=== PATIENT | female | born 1960 | race Caucasian/White ===

== ENCOUNTER 2017-06-20 13:48 | Inpatient (IN) | payer OTHER ==
[~2017-06-20] VITALS: Ht 167.6 cm; Wt 101.0 kg
--- NOTE | 2017-06-20 14:01 | ED GENERAL ADULT ---
History of Present Illness General Chief Complaint: General Adult Stated Complaint: BIBA MULTI COMPLAINTS Source: patient Exam Limitations: no limitations Vital Signs & Intake/Output Vital Signs & Intake/Output Vital Signs Date Time Temp Pulse Resp B/P B/P Pulse O2 O2 Flow FiO2 Mean Ox Delivery Rate 06/209 99.1 73 22 126/70 95 06/20 1906 98.4 76 18 120/64 96 Room Air 06/20 1753 97.8 82 17 137/68 98 Room Air 06/20 1631 87 18 122/63 99 Room Air 06/20 1416 98 Room Air 06/20 1402 97.9 92 18 122/79 96 Room Air Room Air Allergies Coded Allergies: ciprofloxacin (Severe, ANAPHYLAXIS 06/20/17) Reconcile Medications Amlodipine Besylate 10 MG TABLET 1 TAB PO DAILY htn (Reported) Metformin HCl (Metformin HCl ER) 500 MG TAB.ER.24H 2 TAB PO BID DM (Reported) Valsartan/Hydrochlorothiazide (Valsartan-Hctz 320-25 MG Tab) 320 MG-25 MG TABLET 1 TAB PO DAILY HTN (Reported) Triage Nurses Notes Reviewed? yes Onset: Abrupt Duration: hour(s): Timing: recent history HPI: 06/20/17 3:37 PM 56-year-old female presents to the emergency department complaining of left- sided weakness. The patient states she had a headache last night and was not feeling right. This morning when she woke up at approximately 6:30 she was dribbling her coffee. She was last seen normal yesterday. The onset of the symptoms were abrupt, the duration has been approximately 12 hours, the severity is significant as her symptoms required her to come to the emergency department for care. She has a past medical history of hypertension Past History Medical History Any Pertinent Medical History? see below for history Cardiovascular: hypertension Surgical History Surgical History: non-contributory Family History Hx Contributory? No Review of Systems Review of Systems Constitutional: Denies: fever. EENTM: Denies: visual changes. Respiratory: Denies: short of breath. Cardiovascular: Denies: chest pain. GI: Denies: abdominal pain. Genitourinary: Reports: no symptoms. Musculoskeletal: Reports: no symptoms. Skin: Reports: no symptoms. Neurological/Psychological: Reports: anxiety, weakness. Hematologic/Endocrine: Reports: no symptoms. Immunologic/Allergic: Reports: no symptoms. Physical Exam Physical Exam General Appearance: well developed/nourished, alert, awake, anxious, mild distress Head: atraumatic, normal appearance Eyes: Bilateral: normal appearance, PERRL, EOMI. Ears, Nose, Throat: normal pharynx, normal ENT inspection Neck: normal inspection, supple Respiratory: normal breath sounds, chest non-tender, no respiratory distress Cardiovascular: regular rate/rhythm Peripheral Pulses: 4+ radial (R), 4+ radial (L) Gastrointestinal: soft, non-tender Back: normal range of motion Extremities: pedal edema Neurologic/Psych: awake, alert, oriented x 3 Core Measures ACS in differential dx? No CVA/TIA Diagnosis: Yes NIH Stroke Scale (24 Hours) NIH Stroke Scale (24 Hours) Response Value Level of Consciousness alert 0 LOC Questions answers both correctly 0 LOC Commands obeys both correctly 0 Best Gaze normal 0 Visual [place] no visual loss 0 Motor Arm - Left drift 1 Motor Arm - Right no drift 0 Motor Leg - Left drift 1 Motor Leg - Right no drift 0 Limb Ataxia no ataxia 0 Sensory normal 0 Best Language no aphasia 0 Dysarthria normal articulation 0 Extinction and Inattention no neglect 0 Total 2 Date Last Known Well: 06/19/17 Time Last Known Well: 1800 Symptom start date: 06/19/17 Symptom start time: 1800 Reason tPA not ordered Medical Contraindication Swallow Evaluation Fail Swallow eval date 06/20/17 Swallow eval time 1900 Sepsis Present: No Sepsis Focused Exam Completed? No Progress Differential Diagnoses I considered the following diagnoses in my evaluation of the patient: [cva, tia, ] Plan of Care: Orders Procedure Date/time Status Consistent Carbohydrate 2 06/21 B Active PT Evaluate & Treat 06/21 0800 Active Occupational Tx Eval & Treat 06/21 0800 Active CBC WITHOUT DIFFERENTIAL 06/21 0600 Active BASIC ELECTROLYTES PLUS BUN&CR 06/21 0600 Active ECHOCARDIOGRAM 06/20 1830 Active URINE DRUGS OF ABUSE 06/20 1736 Active Pathway - chart 06/20 1705 Active House Staff 06/20 1705 Active Patient Data 06/20 1705 Active Patient Data 06/20 1700 Active Add-on Test (ER Only) 06/20 1700 Active ED Holding Orders 06/20 1658 Active Admit to inpatient 06/20 1658 Active Vital Signs 06/20 1658 Active Code Status 06/20 1658 Active Intake & Output 06/20 1411 Active LIPID PANEL 06/20 1408 Active GLYCOSYLATED HGB 06/20 1408 Active TROPONIN LEVEL 06/20 1358 Active MAGNESIUM 06/20 1358 Active COMPREHENSIVE METABOLIC PANEL 06/20 1358 Active CBC WITHOUT DIFFERENTIAL 06/20 1358 Complete EKG 06/20 1358 Active LP-NABVULG-EKJJIVLRA DOPPLER 06/20 UNK Active SWALLOW EVALUATION 06/20 UNK Active VTE Mechanical Prophylaxis 06/20 UNK Active Telemetry/Ticket Puller 06/20 UNK Active Seizure Precautions 06/20 UNK Active Precautions 06/20 UNK Active NIH Stroke Scale 06/20 UNK Active FingerStick- Glucose 06/20 UNK Active CMS- Neurovascular Checks 06/20 UNK Active CIWA 06/20 UNK Active Current Medications Sig/Gina Start time Last Medication Dose Stop Time Status Admin Aspirin 81 MG DAILY 06/21 0900 AC (Aspirin) Insulin Aspart 0 TIDAC 06/21 0800 AC (NovoLOG) Heparin Sodium 5,000 UNIT Q8 06/20 2200 AC (Porcine) Insulin Aspart 0 AT BEDTIME 06/20 2100 AC (NovoLOG) Atorvastatin Calcium 80 MG 1700 06/20 1815 AC (Lipitor) Laboratory Tests 06/20/17 1408: Anion Gap 18 H, Estimated GFR 51 L, BUN/Creatinine Ratio 26.4 H, Glucose 135 H, Hemoglobin A1c Pending, Calcium 9.9, Magnesium 1.6, Total Bilirubin 1.1, AST 19, ALT 30, Alkaline Phosphatase 58, Troponin I 0.03, Total Protein 7.6, Albumin 4.3, Globulin 3.3, Albumin/Globulin Ratio 1.3, Triglycerides 132, Cholesterol 152, LDL Cholesterol, Calc 67, HDL Cholesterol 55, Cholesterol/HDL Ratio 3, CBC w Diff NO MAN DIFF REQ, RBC 5.03, MCV 87.5, MCH 29.5, MCHC 33.8, RDW 13.5, MPV 8.8, Gran % 76.3 H, Lymphocytes % 16.8 L, Monocytes % 5.3, Eosinophils % 1.3, Basophils % 0.3, Absolute Granulocytes 6.2, Absolute Lymphocytes 1.4, Absolute Monocytes 0.4, Absolute Eosinophils 0.1, Absolute Basophils 0 Initial ED EKG: NSR, nonspecific ST T wave chg Departure Departure Disposition: STILL A PATIENT Condition: Stable Clinical Impression Primary Impression: CVA (cerebral vascular accident) Referrals: Ugo GRAHAM,William Patel Departure Forms: Customer Survey General Discharge Information Admission Note Spoke With: Nicole GRAHAM,Kirsty Leonard Documentation of Exam: Documentation of any treatments & extenuating circumstances including Concerns Regarding Discharge (functional status, medication knowledge or non-compliance, living conditions, etc.) that warrant an admission rather than observation: The patient needs admission for aspirin, neurology consult, telemetry monitoring for atrial fibrillation The patient has a slight left facial droop. Left-sided weakness. The weakness is very minimal. She has no slurred speech. She did dribble water while he attempted to swallow eval. Her symptoms began last night before bed. She needs admission to the hospital for further care Critical Care Note Critical Care Note Critical Care Time: 30-74 min
[2017-06-20 14:16] LABS: ABSOLUTE BASOPHIL COUNT 0 /CUMM (0.0-0.2); ABSOLUTE EOSINOPHIL COUNT 0.1 /CUMM (0.0-0.7); ABSOLUTE GRANULOCYTE CT 6.2 /CUMM (1.4-6.5); ABSOLUTE LYMPH COUNT 1.4 /CUMM (1.2-3.4); ABSOLUTE MONOCYTE COUNT 0.4 /CUMM (0.10-0.60); BASOPHIL % 0.3 % (0.0-2.0); EOSINOPHIL % 1.3 % (0-5); GRANULOCYTE % 76.3 % (42.2-75.2); HEMATOCRIT 44.1 % (37-47); MEAN CORPUSCULAR HGB 29.5 PG (27.0-31.0); MEAN CORPUSCULAR HGB CONC 33.8 G/DL (33.0-37.0); MEAN CORPUSCULAR VOLUME 87.5 FL (81.0-99.0); MEAN PLATELET VOLUME 8.8 FL (7.4-10.4); PLATELET COUNT 246 /CUMM (130-400); RBC DISTRIBUTION WIDTH 13.5 % (11.5-14.5); RED BLOOD CELL CT 5.03 /CUMM (4.20-5.40); WHITE BLOOD CELL COUNT 8.1 /CUMM (4.8-10.8)
--- NOTE | 2017-06-20 14:44 | RADIOLOGY REPORT ---
EXAMINATION: XR PORTABLE CHEST CLINICAL INFORMATION: Left-sided weakness. COMPARISON: None. TECHNIQUE: Portable 75 degrees semierect AP view of the chest was obtained. FINDINGS: The lung singleton are well expanded and appear clear bilaterally. The cardiac silhouette is normal. There are no pleural effusions or pneumothorax. The central pulmonary vasculature is normal. The hilar regions appear normal. There are no acute osseous findings. There are 2 monitor leads overlying the chest. IMPRESSION: 1. There are no acute cardiopulmonary findings.
--- NOTE | 2017-06-20 16:54 | CT SCAN REPORT ---
EXAMINATION: CT ANGIOGRAM HEAD CLINICAL INFORMATION: Left-sided weakness. Assess for CVA. COMPARISON: None. TECHNIQUE: A noncontrast axial CT scan of the head was obtained. Test bolus sequences followed by intravenous administration 95 mL of Optiray 320 intravenous contrast. Helical imaging was performed in the axial plane from the mediastinum to the skull vertex. Delayed postcontrast imaging of the head was also performed. The data was processed at the ophthalmic medical technologist's workstation for generation of MIP sequences. Three-dimensional volume rendered reformatted images were also generated at an offline 3-D workstation. DLP: 1395.17 mGy-cm FINDINGS: CT Head: There is no evidence of acute intracranial hemorrhage or territorial infarction. No abnormal mass-effect or midline shift is seen. Guajardo to white matter differentiation is well preserved. No extra-axial fluid collections are identified. There is no abnormal enhancement. The ventricles and sulci are within normal limits. There are patchy areas of low-attenuation the periventricular and subcortical white matter, consistent with chronic microvascular ischemic disease. There are areas of low attenuation in the basal ganglia bilaterally consistent with lacunar infarcts. There is a lacunar infarct in the left caudate head, tail and body with ex vacuo dilatation of the adjacent anterior horn of the left lateral ventricle. There are no acute osseous findings. There are degenerative changes of the right temporomandibular joint. The soft tissues are unremarkable. The mastoid air cells and visualized portions of the paranasal sinuses are well-aerated. CTA Head: In the anterior circulation, the distal internal carotid arteries within the neck appear normal. The cavernous internal carotid arteries are patent. There is mild atheromatous calcification of the cavernous internal carotid arteries. The internal carotid bifurcations appear normal. There is irregularity of the proximal sylvian branch of the right middle cerebral artery. The left middle and bilateral anterior cerebral arteries demonstrate normal caliber with no evidence of focal stenosis, aneurysm or vascular malformation. Overall, there is normal arborization of the middle cerebral artery branches. The anterior communicating artery is normal. In the posterior circulation, the vertebral arteries are codominant an have uniform caliber. There are atheromatous calcifications of the left vertebral artery. The basilar artery appears normal. The left posterior cerebral artery appears normal. Poor flow is demonstrated in the right posterior cerebral artery. The venous sinuses opacify normally. IMPRESSION: 1. There are no acute bleeds or territorial infarcts. There are no masses or areas of abnormal enhancement. 2. There are patchy areas of low attenuation in the periventricular and subcortical white matter, consistent with chronic microvascular ischemic disease. There are multiple lacunar infarcts. In view of the relatively extensive distribution of these changes, a more acute area of ischemia cannot be excluded on the basis of this study. 3. Decreased flow is demonstrated from the right posterior cerebral artery. There is irregularity of the proximal sylvian branch of the right middle cerebral artery. There are moderate atheromatous calcifications of the left vertebral artery. No vascular malformations or aneurysms are demonstrated.
--- NOTE | 2017-06-20 17:05 | Admission Certification ---
Admission Certification Certification Statement - As attending physician, I certify that at the time of - admission, based on clinical presentation, severity of - symptoms, need for further diagnostic testing and - therapeutic interventions, and risk of adverse outcomes - without in-hospital treatment, in my clinical assessment, - this patient requires an acute hospital stay for a minimum - of two nights or longer. I have also considered psychsocial - factors such as support system, advanced age, financial - issues, cognitive issues, and failed out-patient treatments, - past re-admission history, safety of patient, and lack of - compliance as applicable. Specific rationale supporting this admission is: Acute stroke in patient with hypertension and diabetes.
--- NOTE | 2017-06-20 17:05 | History & Physical ---
Camilla Hankins MD 06/20/17 6444: General Information and [facility] MD Statement: I have seen and personally examined TIANNAMereFISHJERI and documented this H&P. The patient is a 56 year old F who presented with a patient stated chief complaint of left sided weakness. Source of Information: patient Exam Limitations: no limitations History of Present Illness: This is a 56-year-old female with a past medical history significant for glucose intolerance, hypertension, but is brought in by ambulance for complaints of left -sided weakness. The patient states that last night she developed a headache on the left side of her head with associated dizziness. She states that for the rest of the night she felt "unwell". This morning she woke up and noticed that the left side of her face felt heavy, numb, and was drooping in the near. She stated that when she attempted to drink her morning coffee she "dribbles everywhere". She also notes left-sided leg and arm weakness and tingling in her extremities. At the time of interview she continues to complain of a headache. She denies any chest pain but does note that she has some chronic shortness of breath at baseline as she is a former smoker and has seasonal allergies. She states that at the moment she is quite congested. She denies a vision change, hearing change, falls, loss of consciousness, vomiting/nausea, urinary or bowel changes. She uses a cane for ambulation and states that she often feels "dizzy in baked open spaces". She states that she recently started blood pressure meds for the first time and has had nasal congestion ever since. She does not recall the names the blood pressure medications but states that she had a hypertensive episode in a hospital in [place] in November. The patient states that she has been under a lot of stress lately with the loss of her job last month secondary to substance abuse that she denies and strife with her mother that has caused her to move to a hotel recently. Her PCP is Dr. Beckham. She does not have a neurologist or design engineer. Allergies/Medications Allergies: Coded Allergies: ciprofloxacin (Severe, ANAPHYLAXIS 06/20/17) Compliance With Home Meds: GOOD Past History Travel History Traveled to [place] past 21 day No Medical History Cardiovascular: hypertension Endocrine: diabetes Surgical History Surgical History: none Past Family/Social History Family History Relations & Conditions if any MOTHER FH: stroke FATHER FH: cancer Psychosocial History Primary Language: Belarusian Smoking Status: Current Everyday Smoker ETOH Use: FORMER ALCOHOLIC SOBER SINCE 12/21 Illicit Drug Use: denies illicit drug use Functional Ability ADLs Independent: dressing, eating, toileting, bathing. Ambulation: cane Employment History Employment Unemployed Review of Systems Review of Systems Constitutional: Reports: weakness. EENTM: Reports: no symptoms. Cardiovascular: Reports: no symptoms. Respiratory: Reports: see HPI, short of breath. GI: Reports: no symptoms. Genitourinary: Reports: no symptoms. Musculoskeletal: Reports: no symptoms. Skin: Reports: no symptoms. Neurological/Psychological: Reports: headache. Hematologic/Endocrine: Reports: no symptoms. Immunologic/Allergic: Reports: no symptoms. Exam & Diagnostic Data Last 24 Hrs of Vital Signs/I&O Vital Signs Date Time Temp Pulse Resp B/P B/P Pulse O2 O2 Flow FiO2 Mean Ox Delivery Rate 06/20 2243 98.7 73 20 130/72 93 06/20 1949 99.1 73 22 126/70 95 06/20 1906 98.4 76 18 120/64 96 Room Air 06/20 1753 97.8 82 17 137/68 98 Room Air 06/20 1631 87 18 122/63 99 Room Air 06/20 1416 98 Room Air 06/20 1402 97.9 92 18 122/79 96 Room Air Room Air Intake & Output 06/20 1600 06/20 0800 06/20 0000 Intake Total Output Total Balance Patient 220 lb Weight Weight Reported by Patient Measurement Method Physical Exam General Appearance Alert, Oriented X3, Cooperative, Mild Distress Skin No Rashes, No Breakdown, No Significant Lesion Skin Temp/Moisture Exam: Warm/Dry Sepsis Skin Exam (color): Normal for Ethnicity HEENT Atraumatic, PERRLA, EOMI, Mucous Membr. moist/pink Neck Supple, No JVD Cardiovascular Regular Rate, Normal S1, Normal S2, No Murmurs Lungs Clear to Auscultation, Normal Air Movement Abdomen Normal Bowel Sounds, Soft Neurological Normal Speech, Normal Tone, Cranial Nerves 3-12 NL, Reflexes 2+, careful, slow gait. Decreased strength in left upper and lower extremities, 3/ 5. Mild left facial droop on cranial nerve tests, normal eye exam. Normal sensation. No evidence of dysdiadochokinesia, heel to orona test abnormal on left. Extremities No Clubbing, No Cyanosis, No Edema, Normal Pulses, No Tenderness/ Swelling Vascular Normal Pulses, Pulses Symmetrical Sepsis Peripheral Pulse Location: Radial Sepsis Peripheral Pulse Exam: Normal Last 24 Hrs of Labs/Hi: Laboratory Tests 06/20/17 1408: Anion Gap 18 H, Estimated GFR 51 L, BUN/Creatinine Ratio 26.4 H, Glucose 135 H, Hemoglobin A1c Pending, Calcium 9.9, Magnesium 1.6, Total Bilirubin 1.1, AST 19, ALT 30, Alkaline Phosphatase 58, Troponin I 0.03, Total Protein 7.6, Albumin 4.3, Globulin 3.3, Albumin/Globulin Ratio 1.3, Triglycerides 132, Cholesterol 152, LDL Cholesterol, Calc 67, HDL Cholesterol 55, Cholesterol/HDL Ratio 3, CBC w Diff NO MAN DIFF REQ, RBC 5.03, MCV 87.5, MCH 29.5, MCHC 33.8, RDW 13.5, MPV 8.8, Gran % 76.3 H, Lymphocytes % 16.8 L, Monocytes % 5.3, Eosinophils % 1.3, Basophils % 0.3, Absolute Granulocytes 6.2, Absolute Lymphocytes 1.4, Absolute Monocytes 0.4, Absolute Eosinophils 0.1, Absolute Basophils 0 Diagnostic Data EKG Results Normal sinus rhythm 82, QTC 486 CXR Results Negative for any acute cardiopulmonary process Assessment/Plan Assessment: This is a 56-year-old female with a past medical history significant for glucose intolerance, hypertension, but is brought in by ambulance for complaints of left -sided weakness since this morning. She also complains of a headache and feeling "unwell" since last night. Physical exam was suggestive of CVA with weakness throughout the left side of her body. The patient notes a considerable amount of stress in her daily life recently. She has a history of questionable drug use (cocaine). She is a current and long-time smoker. At home, the patient takes valsartan/hydrochlorothiazide and amlodipine for blood pressure and metformin for her sugar control. In the ED, her heart rate is 87, respiratory rate 18, blood pressure 122/63, 95% on room air. Chest x-ray is negative for any acute cardiopulmonary process. CTA shows chronic microvascular changes, with no acute bleed or territorial infarcts but decreased flow in the posterior right cerebral artery and moderate atheromatous changes in the left cerebral artery. She was given 325 mg of aspirin in the ED and Tylenol. Labs showed a slightly low bicarbonate of 18, BUN 29, creatinine 1.1, glucose 135, normal LFTs, mag, calcium, troponins. Patient has a family history of TIA and stroke and is a current smoker with a potential past medical history of cocaine use. Patient normally has some degree of dizziness and ambulates with a cane. He has never been worked up for any TIA or stroke in the past. Plan Patient is to be admitted to telemetry for evaluation and treatment of the followin. Left sided weakness -Monitor patient in telemetry for potential arrhythmias -Neurochecks every 8, NIH stroke scale assessment -Neurology consult was placed: CT head noncontrast showed multiple lacunar infarcts in bilateral basal ganglia and left caudate head, CTA shows decreased flow in her cerebral arteries secondary to atheromatous changes, not a candidate for thrombolytics as symptoms began this morning. -Aspirin 81 mg and high-dose statin atorvastatin 80 mg -Doppler carotid ultrasound and echocardiogram in the morning to assess for source of emboli -Informal swallow evaluation was done and determined the patient could tolerate food -Formal swallowing evaluation the morning with PT/OT -Measure U tox for potential contribution of offending agents -We can allow permissive hypertension in this patient and as such we will hold her antihypertensive medications amlodipine and valsartan/hydrochlorothiazide. Continue to monitor blood pressure. -Measure lipid panel in the morning, fasting. Afterwards patient can be given consisting carbohydrate 3 diet 2. Diabetes -Hemoglobin A1c -Accu-Cheks and NovoLog sliding scale 3. History of drug use -U tox -CIWA -Nicotine patch Full code DVT prophylaxis with heparin and Alps Insisting carbohydrate 3 diet As Ranked By This Provider Problem List: 1. CVA (cerebral vascular accident) Core Measures/Misc (11/21) Acute Coronary Syndrome ACS Diagnosis: No Congestive Heart Failure Congestive Heart Failure Diagnosis No Cerebrovascular Accident CVA/TIA Diagnosis: Yes VTE (View Protocol) VTE Risk Factors Smoker No Mechanical VTE Prophylaxis d/t N/A MechProphylax Ordered No VTE Pharm Prophylaxis d/t NA PharmProphylax ordered Sepsis (View protocol) Sepsis Present: No Mustapha GRAHAM,[facility] 06/20/17 8949: General Information and HPI Allergies/Medications Home Med list Amlodipine Besylate 10 MG TABLET 1 TAB PO DAILY htn (Reported) Aspirin (Aspirin*) 81 MG TAB.CHEW 81 MG PO DAILY cardiovascular health Atorvastatin Calcium 80 MG TABLET 80 MG PO 1700 cholesterol Metformin HCl (Metformin HCl ER) 500 MG TAB.ER.24H 2 TAB PO BID DM (Reported) Valsartan/Hydrochlorothiazide (Valsartan-Hctz 320-25 MG Tab) 320 MG-25 MG TABLET 1 TAB PO DAILY HTN (Reported) Resident Review Statement Resident Statement: examined this patient Other Findings: Ms Rodriguez is a pleasant 56 year old female with past medical history of hypertension and diadetes who presented to the ED on 06/20 after experieriencing left sided weakness and a left sided facial droop. 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 States that she had a headache when she went to bed last evening. She also work up multiple times to void. This morning when she woke up, she noticed a left sided facial droop and upper of lower extremity weakness. She infromed the pattern layout worker (she is staying at a hotel) that she would like to be brought to the hospital. At the time of our clinical interaction the patient continued to state that she doesn't feel like herself and reports a left-sided weakness as well as headache. Last saw primary care physician in March 2017. She reports good medication complaince Patient also states that she's been under considerable amount of stress after losing her job owing to alleged substance abuse. PCP: Citlali Guerrero A bed side swallow screen done was WNL. She does have a long standing smoking history >30 pack years. R Denies any vision changes, dysarthria or any other focal neurological deficits. E at the time of presentation her temperature was 97.9. Respirations 18. Blood pressure 122/79. Heart rate was 92. General Appearance Alert, Oriented X3, Cooperative, Dry mucous membranes. Scisorring gait. Skin Temp/Moisture Exam: Warm/Dry Sepsis Skin Exam (color): Normal for Ethnicity HEENT Atraumatic, PERRLA, EOMI. No nystagmus Neck Supple Cardiovascular Regular Rate, Normal S1, Normal S2 Lungs Clear to Auscultation Abdomen Normal Bowel Sounds, Soft Neurological Normal Gait, Normal Speech, Cranial Nerves 3-12 NL. LLE Strength 3/ 5. LUE: Strength 3/5. RLE: 5/5. RUE:5/5. Heel to orona on right WNL. Unable to perform heel to orona on left. Extremities No Clubbing, No Cyanosis, No Edema. Vascular Normal Pulses Labs As Above IMAGING CTA Head IMPRESSION: 1. There are no acute bleeds or territorial infarcts. There are no masses or areas of abnormal enhancement. 2. There are patchy areas of low attenuation in the periventricular and subcortical white matter, consistent with chronic microvascular ischemic disease. There are multiple lacunar infarcts. In view of the relatively extensive distribution of these changes, a more acute area of ischemia cannot be excluded on the basis of this study. 3. Decreased flow is demonstrated from the right posterior cerebral artery. There is irregularity of the proximal sylvian branch of the right middle cerebral artery. There are moderate atheromatous calcifications of the left vertebral artery. No vascular malformations or aneurysms are demonstrated. DICTATED BY: Rock GRAHAM,Alexey A/Fabienne Ms Rodriguez is a pleasant 56 year old female with past medical history of hypertension and diadetes who presented to the ED on 06/20 after experieriencing left sided weakness and a left sided facial droop. Her acute presentation is concerning for a CVA on physical examination she did show evidence of left-sided weakness. Her disease is most likley in line with small vessel disease. We are unsure whether this was an old or new stroke hence tPA cannot be given. #Acute CVA with residual left-sided weakness. #History of hypertension. #History of diabetes. #History of nicotine dependence. #Prior history of substance abuse. Admit patient to telemetry for monitoring overnight monitor any arrhythmias, notably atrial fibrillation. Echocardiogram in a.m. to assess for a LV thrombus. Carotid ultrasound in a.m. Begin high-dose statin. Continue aspirin 81 mg. Defer to neurology regarding MRI and whether this would twisting frame changer. A callback was placed to neurology. I spoke with Dr. Raymond who stated that an MRI would not twisting frame changer as the patient does not have any signs of subcortical neglect. Patient does also not meet role for thrombolytics. Her presentation is likely due to chronic hypertension. Formal Neurology consultation in am. Hold any antihypertensives and allow for permissive hypertension. Hemoglobin A1c, urine drugs of abuse, lipid panel. Fingersticks. 3 times a day at bedtime. NovoLog sliding scale. Aim to keep blood sugar below 150. PT and OT in a.m. CIWA scale, if elevated begin IV Ativan. BEP and CBC in a.m. Nicotine Patch PRN Smoking Cessation Diet consistent carbohydrate 3 . Formal swallow evaluation in a.m. Initial bedside screen was within normal limits. DVT PPX: Heparin SUB Q Patient is a full code Nicole GRAHAM,Kirsty 06/20/17 1805: Attending Review Statement Attending Statement Attending MD Statement: examined this patient, discuss w/resident/PA/BUSINESS WRITER, reviewed EMR data (avail), discussed with nursing Attending Assessment/Plan: 56-year-old female past medical history of hypertension and diabetes, active tobacco use, EtOH use (last use 3 months ago after which she was treated in an alcohol rehabilitation setting) who is here with what appears to be an acute CVA. Patient slept last night with a headache and not feeling good and woke up with left arm and left leg weakness. She has no speech abnormality but clinically appears to have suffered an acute stroke likely in the MCA territory. She is beyond the time window for TPA given that she woke up with this deficit. The initial CT head noncontrast showed multiple lacunar infarcts in bilateral basal ganglia and left caudate head, while the CTA showed poor flow in the right posterior cerebral artery. Given the multiple infarcts in the initial head CT a superimposed area of acute ischemia is hard to identify. At this point will bring her into telemetry, she passed a bedside swallow eval done in the emergency room so we can give her by mouth meds. She needs an aspirin and statin. Right now she is normotensive and given the likely acute CVA will allow for permissive hypertension for the first 24-48 hours. We'll get an echocardiogram to rule out an LV thrombus and watch her on the monitor for A. fib. We'll put her on fingersticks with insulin sliding scale and repeat the hemoglobin A1c. We'll check carotid Dopplers bilaterally. We'll get PT/ OT evaluation. We'll get a formal neurology consult, the question is whether we need to do an MRI to identify an acute area of ischemia and whether that would twisting frame changer acutely . Patient lost her job 3 months ago and is under a lot of social stress with her living conditions as well. She needs a social work consult. DVT prophylaxis, Ativan with CIWA protocol and follow closely.
[2017-06-20] MEDS ORDERED: AMLODIPINE BESY10 M1 PO (17:25)
[2017-06-20] MEDS ORDERED: VALSARTAN-HCTZ1 EAC3 PO (17:25)
[2017-06-20] MEDS ORDERED: METFORMIN HCL500 M4 PO (17:32)
[2017-06-20 19:49] VITALS: BP 126/70
[2017-06-20 22:43] VITALS: BP 130/72
[2017-06-21 06:40] VITALS: BP 110/70
--- NOTE | 2017-06-21 08:07 | ULTRASOUND REPORT ---
EXAMINATION: US DUPLEX CAROTID AND VERTEBRAL CLINICAL INFORMATION: 56-year-old female with left-sided weakness and left facial droop. COMPARISON: None TECHNIQUE: Real-time ultrasound and Doppler techniques (integrating B-mode 2D vascular images, Doppler spectral analysis and color flow Doppler imaging) were utilized to interrogate the extracranial carotid and vertebral arteries bilaterally. The degree of stenosis determined by criteria similar to NASCET. FINDINGS: 1. On the right: Minimal plaque is present at the carotid bifurcation but velocity measurements are normal and do not suggest a stenosis of greater than 50% diameter reduction in the right ICA. The vertebral artery is patent demonstrating antegrade flow. The common carotid artery velocity is 133 cm/s. The internal carotid artery velocities are 117 cm/s systolic and 18 cm/s diastolic. The external carotid artery velocity is 92 cm/s. 2. On the left: No plaque is present at the carotid bifurcation and all velocity measurements are normal and do not suggest a stenosis of greater than 50% diameter reduction in the left ICA. The vertebral artery is patent demonstrating antegrade flow. The common carotid artery velocity is 134 cm/s. The internal carotid artery velocities are 65 cm/s systolic and 16 cm/s diastolic. The external carotid artery velocity is a 3 cm/s. The external carotid arteries appear unremarkable. IMPRESSION: There is minimal plaque present in the right internal carotid artery with normal velocities consistent with a minimal 0-49% stenosis. The left side is normal with no plaque seen.
[2017-06-21 08:09] LABS: ABSOLUTE BASOPHIL COUNT 0 /CUMM (0.0-0.2); ABSOLUTE EOSINOPHIL COUNT 0.2 /CUMM (0.0-0.7); ABSOLUTE GRANULOCYTE CT 4.2 /CUMM (1.4-6.5); ABSOLUTE LYMPH COUNT 1.4 /CUMM (1.2-3.4); ABSOLUTE MONOCYTE COUNT 0.5 /CUMM (0.10-0.60); BASOPHIL % 0.4 % (0.0-2.0); EOSINOPHIL % 2.7 % (0-5); GRANULOCYTE % 66.9 % (42.2-75.2); HEMATOCRIT 40.7 % (37-47); MEAN CORPUSCULAR HGB 29.6 PG (27.0-31.0); MEAN CORPUSCULAR HGB CONC 33.8 G/DL (33.0-37.0); MEAN CORPUSCULAR VOLUME 87.4 FL (81.0-99.0); MEAN PLATELET VOLUME 8.5 FL (7.4-10.4); PLATELET COUNT 216 /CUMM (130-400); RBC DISTRIBUTION WIDTH 13.9 % (11.5-14.5); RED BLOOD CELL CT 4.66 /CUMM (4.20-5.40); WHITE BLOOD CELL COUNT 6.3 /CUMM (4.8-10.8)
[2017-06-21 10:45] VITALS: BP 136/68
--- NOTE | 2017-06-21 12:06 | PN- Housestaff ---
Nhi GRAHAM,Camilla 06/21/17 1206: Subjective Follow-up For: cva Complaints: no complaints Tele-Events Since Last Visit: -itis rhythm at a rate of 58-62, first-degree heart block with CA interval 0.24 Subjective: Patient is quite anxious. She is teary and worried about her health. She states that she doesn't know how she got like this. She notes that she is still quite dizzy. She continues to have weakness on her left side. Review of Systems Constitutional: Reports: weakness. EENTM: Reports: no symptoms. Cardiovascular: Reports: no symptoms. Respiratory: Reports: no symptoms. Gastrointestinal: Reports: no symptoms. Genitourinary: Reports: no symptoms. Musculoskeletal: Reports: no symptoms. Neurological/Psychological: Reports: anxiety, numbness, tingling, weakness. Objective Last 24 Hrs of Vital Signs/I&O Vital Signs Date Time Temp Pulse Resp B/P B/P Pulse O2 O2 Flow FiO2 Mean Ox Delivery Rate 06/21 1430 97.9 70 20 124/70 90 Room Air 06/21 1045 136/68 06/21 0640 97.1 68 20 110/70 94 Room Air 06/20 2243 98.7 73 20 130/72 93 06/20 1949 99.1 73 22 126/70 95 06/20 1906 98.4 76 18 120/64 96 Room Air 06/20 1753 97.8 82 17 137/68 98 Room Air Intake & Output 06/21 1600 06/21 0800 06/21 0000 Intake Total 200 Output Total Balance 200 Intake, Oral 200 Patient 218 lb Weight Physical Exam General Appearance: Alert, Oriented X3, Cooperative, Mild Distress Skin: No Rashes, No Breakdown, No Significant Lesion Skin Temp/Moisture Exam: Warm/Dry HEENT: Atraumatic, PERRLA, EOMI, Mucous Membr. moist/pink Cardiovascular: Regular Rate, Normal S1, Normal S2, No Murmurs Lungs: Clear to Auscultation, Normal Air Movement Neurological: Normal Speech, Cranial Nerves 3-12 NL, brisk reflexes in the upper extremities, cranial nerves intact, strength 3/5 in left upper and lower extremities, decreased sensation in left upper and lowers extremities, retained sensation and hot cold differentiation and face left and right.dizziness elicited on eye-movement. No evidence dysdiadochokinesia. no pronator drift. Extremities: No Clubbing, No Cyanosis, No Edema, Normal Pulses, No Tenderness/ Swelling Vascular: Normal Pulses, Pulses Symmetrical Current Medications: Current Medications Sig/Gina Start time Last Medication Dose Route Stop Time Status Admin Acetaminophen 650 MG ONCE ONE 06/21 1045 DC 06/21 PO 06/21 1046 1320 Aspirin 81 MG DAILY 06/21 0900 AC 06/21 PO 1022 Atorvastatin Calcium 80 MG 1700 06/20 1815 AC 06/20 PO 2214 Heparin Sodium 5,000 UNIT Q8 06/20 2200 AC 06/21 (Porcine) SC 1315 Insulin Aspart 0 TIDAC 06/21 0800 AC 06/21 SC 1315 Insulin Aspart 0 AT BEDTIME 06/20 2100 AC SC Lorazepam 0 Q1P PRN 06/21 0245 AC IV Melatonin 5 MG AT BEDTIME 06/21 2100 AC PO Melatonin 5 MG ONCE ONE 06/21 0045 DC 06/21 PO 06/21 0046 0059 Patient Medication 1 ED ONE ONE 06/21 1645 FL Teaching ED 06/21 1646 Last 24 Hrs of Lab/Hi Results Last 24 Hrs of Labs/Mics: Laboratory Tests 06/21/17 1000: Urine Opiates Screen < 100, Methadone Screen < 40, Barbiturate Screen < 60, Ur Phencyclidine Scrn < 6.00, Amphetamines Screen < 100, U Benzodiazepines Scrn < 85, Urine Cocaine Screen 404 H, Urine Cannabis Screen < 5.00 06/21/17 0630: Anion Gap 13, Estimated GFR > 60, BUN/Creatinine Ratio 25.6 H, CBC w Diff NO MAN DIFF REQ, RBC 4.66, MCV 87.4, MCH 29.6, MCHC 33.8, RDW 13.9, MPV 8.5, Gran % 66.9, Lymphocytes % 22.7, Monocytes % 7.3, Eosinophils % 2.7, Basophils % 0.4, Absolute Granulocytes 4.2, Absolute Lymphocytes 1.4, Absolute Monocytes 0.5, Absolute Eosinophils 0.2, Absolute Basophils 0 Assessment/Plan Assessment: This is a 56-year-old female with a past medical history significant for glucose intolerance, hypertension, but is brought in by ambulance for complaints of left -sided weakness since this morning. She also complains of a headache and feeling "unwell" since last night. Physical exam was suggestive of CVA with weakness throughout the left side of her body. The patient notes a considerable amount of stress in her daily life recently. She has a history of questionable drug use (cocaine). She is a current and long-time smoker. At home, the patient takes valsartan/hydrochlorothiazide and amlodipine for blood pressure and metformin for her sugar control. In the ED, her heart rate is 87, respiratory rate 18, blood pressure 122/63, 95% on room air. Chest x-ray is negative for any acute cardiopulmonary process. CTA shows chronic microvascular changes, with no acute bleed or territorial infarcts but decreased flow in the posterior right cerebral artery and moderate atheromatous changes in the left cerebral artery. She was given 325 mg of aspirin in the ED and Tylenol. Labs showed a slightly low bicarbonate of 18, BUN 29, creatinine 1.1, glucose 135, normal LFTs, mag, calcium, troponins. Patient has a family history of TIA and stroke and is a current smoker with a potential past medical history of cocaine use. Patient normally has some degree of dizziness and ambulates with a cane. He has never been worked up for any TIA or stroke in the past. Plan Into need to monitor patient in telemetry for the following 1. Left sided weakness -Monitor patient in telemetry for potential arrhythmias, she is currently in sinus rhythm. -Neurochecks every 8, NIH stroke scale assessment was one yesterday, unchanged today -Neurology consult was placed: CT head noncontrast showed multiple lacunar infarcts in bilateral basal ganglia and left caudate head, CTA shows decreased flow in her middle cerebral artery and posterior cerebellar artery secondary to atheromatous changes, not a candidate for thrombolytics as symptoms 24 hours prior to presentation. Patient most likely has subcortical small vessel syndrome as her entire left body is symptomatic. Her posterior cerebellar decreased flow may count for her dizziness although we will defer to neurology for potential confounding inner ear dizziness issues. -MRI brain -Aspirin 81 mg and high-dose statin atorvastatin 80 mg -Doppler carotid ultrasound is normal and we await echocardiogram in the morning to assess for source of emboli -Informal swallow evaluation was done and determined the patient could tolerate food -Formal swallowing evaluation the morning, patient is currently on diet -U tox positive for cocaine which could've had a contribution to the patient's vascular disease. Drug abstention discussed with patient. -We can allow permissive hypertension in this patient and as such we will hold her antihypertensive medications amlodipine and valsartan/hydrochlorothiazide. Continue to monitor blood pressure but eventual goal is back at 130/70. -Cholesterol levels normal -Fall precautions -Patient could not participate in PT this morning due to dizziness. 2. Diabetes -Hemoglobin A1c 7.4 -Accu-Cheks and NovoLog sliding scale -Consisting carbohydrate 3 diet 3. History of drug use and social issues -U tox positive for cocaine -CIWA Ativan as needed -Nicotine patch and smoking cessation program -Social work consult. Full code DVT prophylaxis with heparin and Alps Insisting carbohydrate 3 diet Problem List: 1. CVA (cerebral vascular accident) Pain Ratin Pain Location: na Pain Goal: Remain pain free Pain Plan: na Tomorrow's Labs & Rationales: cbc bep Julio CesarTonystewart 06/21/17 1328: Attending MD Review Statement Attending Statement Attending MD Statement: examined this patient, discuss w/resident/PA/CONFERENCE MANAGER, agreed w/resident/PA/CONFERENCE MANAGER, discussed with family, reviewed EMR data (avail), discussed with nursing, discussed with case mgmt, reviewed images, amended to note Attending Assessment/Plan: Patient seen/examined bedside. Patient c/o dizziness. CTA with reduced blood supply in posterior vertebral artery. Urine drug screen is positive for cocaine. MRI brain to identify acute stroke vs mutliple infarcts area. PT consult recommend home PT. SW consult to assess family situation. Neurochecks and fall precautions.
[2017-06-21 14:30] VITALS: BP 124/70
--- NOTE | 2017-06-21 15:19 | Cons- Neurology ---
General Information and HPI Consulting Request Date of Consult: 06/21/17 Requested By: Julio Cesar GRAHAM,Gaurav Reason for Consult: CVA Source of Information: patient, old records Exam Limitations: no limitations History of Present Illness: 56/F developped weakness and paresthesia left face arm and leg yesterday and wasn't well night before. Came late to ER > 6hr after onset. Was improving, admitted, CTdiscloses nothing acute but shows old lacunar CVAs and microvascular disease. Today complains more of dizziness, seems anxious Multiple risk factors, active smoker <1.5 pk/day, HTN, HL, Hyperglycemia, Cocaine (says not in past 1 year) Single, denies ETOH, lost job at [employer], lives with her mother Allergies/Medications Allergies: Coded Allergies: ciprofloxacin (Severe, ANAPHYLAXIS 06/20/17) Home Med List: Amlodipine Besylate 10 MG TABLET 1 TAB PO DAILY htn (Reported) Metformin HCl (Metformin HCl ER) 500 MG TAB.ER.24H 2 TAB PO BID DM (Reported) Valsartan/Hydrochlorothiazide (Valsartan-Hctz 320-25 MG Tab) 320 MG-25 MG TABLET 1 TAB PO DAILY HTN (Reported) Current Medications: Current Medications Sig/Gina Start time Last Medication Dose Route Stop Time Status Admin Acetaminophen 650 MG ONCE ONE 06/21 1045 DC 06/21 PO 06/21 1046 1320 Acetaminophen 0 .STK-MED ONE 06/20 1711 DC PO Acetaminophen 650 MG ONCE ONE 06/20 1700 DC 06/20 PO 06/20 1701 1707 Aspirin 81 MG DAILY 06/21 0900 AC 06/21 PO 1022 Aspirin 0 .STK-MED ONE 06/20 1711 DC PO Aspirin 325 MG ONCE ONE 06/20 1700 DC 06/20 PO 06/20 1701 1707 Atorvastatin Calcium 80 MG 1700 06/20 1815 AC 06/20 PO 2214 Heparin Sodium 5,000 UNIT Q8 06/20 2200 AC 06/21 (Porcine) SC 1315 Insulin Aspart 0 TIDAC 06/21 0800 AC 06/21 SC 1315 Insulin Aspart 0 AT BEDTIME 06/20 2100 AC SC Lorazepam 0 Q1P PRN 06/21 0245 AC IV Melatonin 5 MG AT BEDTIME 06/21 2100 AC PO Melatonin 5 MG ONCE ONE 06/21 0045 DC 06/21 PO 06/21 0046 0059 Review of Systems Review of Systems: multiple complaints, mild headache, dizziness worse on movemnt, blurry vision, general malaise. denied chest pain, palpitations, bruising, bleeding. 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 Home Primary Language: Vietnamese Smoking Status: Current Everyday Smoker ETOH Use: FORMER ALCOHOLIC SOBER SINCE 12/21 Illicit Drug Use: denies illicit drug use Functional Ability ADLs Independent: dressing, eating, toileting, bathing. Ambulation: cane Employment History Employment: Unemployed Exam & Diagnostic Data Vital Signs and I&O Vital Signs Date Time Temp Pulse Resp B/P B/P Pulse O2 O2 Flow FiO2 Mean Ox Delivery Rate 06/21 1430 97.9 70 20 124/70 90 Room Air 06/21 1045 136/68 06/21 0640 97.1 68 20 110/70 94 Room Air 06/20 2243 98.7 73 20 130/72 93 06/20 1949 99.1 73 22 126/70 95 06/20 1906 98.4 76 18 120/64 96 Room Air 06/20 1753 97.8 82 17 137/68 98 Room Air 06/20 1631 87 18 122/63 99 Room Air Intake & Output 06/21 1600 06/21 0800 06/21 0000 Intake Total 200 Output Total Balance 200 Intake, Oral 200 Patient 218 lb Weight Physical Exam: Overweight, unkempt, anxious. 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 exaggerated dyspraxia left hand DTR brisker on left, toes downgoing gait not tested Last 48 Hours of Lab Results: Laboratory Tests 06/21 06/21 1000 0630 Chemistry Sodium (137 - 145 mmol/L) 138 Potassium (3.5 - 5.1 mmol/L) 4.1 Chloride (98 - 107 mmol/L) 106 Carbon Dioxide (22 - 30 mmol/L) 20 L Anion Gap (5 - 16) 13 BUN (7 - 17 mg/dL) 23 H Creatinine (0.5 - 1.0 mg/dL) 0.9 Estimated GFR (>60 ml/min) > 60 BUN/Creatinine Ratio (7 - 25 %) 25.6 H Hematology CBC w Diff NO MAN DIFF REQ WBC (4.8 - 10.8 /CUMM) 6.3 RBC (4.20 - 5.40 /CUMM) 4.66 Hgb (12.0 - 16.0 G/DL) 13.8 Hct (37 - 47 %) 40.7 MCV (81.0 - 99.0 FL) 87.4 MCH (27.0 - 31.0 PG) 29.6 MCHC (33.0 - 37.0 G/DL) 33.8 RDW (11.5 - 14.5 %) 13.9 Plt Count (130 - 400 /CUMM) 216 MPV (7.4 - 10.4 FL) 8.5 Gran % (42.2 - 75.2 %) 66.9 Lymphocytes % (20.5 - 51.1 %) 22.7 Monocytes % (1.7 - 9.3 %) 7.3 Eosinophils % (0 - 5 %) 2.7 Basophils % (0.0 - 2.0 %) 0.4 Absolute Granulocytes (1.4 - 6.5 /CUMM) 4.2 Absolute Lymphocytes (1.2 - 3.4 /CUMM) 1.4 Absolute Monocytes (0.10 - 0.60 /CUMM) 0.5 Absolute Eosinophils (0.0 - 0.7 /CUMM) 0.2 Absolute Basophils (0.0 - 0.2 /CUMM) 0 Toxicology Urine Opiates Screen (>2000 NG/ML) < 100 Methadone Screen (>300 NG/ML) < 40 Barbiturate Screen (>200 NG/ML) < 60 Ur Phencyclidine Scrn (>25 NG/ML) < 6.00 Amphetamines Screen (>1000 NG/ML) < 100 U Benzodiazepines Scrn (>200 NG/ML) < 85 Urine Cocaine Screen (>300 NG/ML) 404 H Urine Cannabis Screen (>50 NG/ML) < 5.00 06/20 1408 Chemistry Sodium (137 - 145 mmol/L) 137 Potassium (3.5 - 5.1 mmol/L) 4.5 Chloride (98 - 107 mmol/L) 102 Carbon Dioxide (22 - 30 mmol/L) 18 L Anion Gap (5 - 16) 18 H BUN (7 - 17 mg/dL) 29 H Creatinine (0.5 - 1.0 mg/dL) 1.1 H Estimated GFR (>60 ml/min) 51 L BUN/Creatinine Ratio (7 - 25 %) 26.4 H Glucose (65 - 99 mg/dL) 135 H Hemoglobin A1c (4.2 - 5.8 %) 7.4 H Calcium (8.4 - 10.2 mg/dL) 9.9 Magnesium (1.6 - 2.3 mg/dL) 1.6 Total Bilirubin (0.2 - 1.3 mg/dL) 1.1 AST (14 - 36 U/L) 19 ALT (9 - 52 U/L) 30 Alkaline Phosphatase (<127 U/L) 58 Troponin I (< 0.11 ng/ml) 0.03 Total Protein (6.3 - 8.2 g/dL) 7.6 Albumin (3.5 - 5.0 g/dL) 4.3 Globulin (1.9 - 4.2 gm/dL) 3.3 Albumin/Globulin Ratio (1.1 - 2.2 %) 1.3 Triglycerides (<150 mg/dL) 132 Cholesterol (<200 MG/DL) 152 LDL Cholesterol, Calc (65 - 129 mg/dL) 67 HDL Cholesterol (40 - 60 mg/dL) 55 Cholesterol/HDL Ratio (0.00 - 4.23 %) 3 Hematology CBC w Diff NO MAN DIFF REQ WBC (4.8 - 10.8 /CUMM) 8.1 RBC (4.20 - 5.40 /CUMM) 5.03 Hgb (12.0 - 16.0 G/DL) 14.9 Hct (37 - 47 %) 44.1 MCV (81.0 - 99.0 FL) 87.5 MCH (27.0 - 31.0 PG) 29.5 MCHC (33.0 - 37.0 G/DL) 33.8 RDW (11.5 - 14.5 %) 13.5 Plt Count (130 - 400 /CUMM) 246 MPV (7.4 - 10.4 FL) 8.8 Gran % (42.2 - 75.2 %) 76.3 H Lymphocytes % (20.5 - 51.1 %) 16.8 L Monocytes % (1.7 - 9.3 %) 5.3 Eosinophils % (0 - 5 %) 1.3 Basophils % (0.0 - 2.0 %) 0.3 Absolute Granulocytes (1.4 - 6.5 /CUMM) 6.2 Absolute Lymphocytes (1.2 - 3.4 /CUMM) 1.4 Absolute Monocytes (0.10 - 0.60 /CUMM) 0.4 Absolute Eosinophils (0.0 - 0.7 /CUMM) 0.1 Absolute Basophils (0.0 - 0.2 /CUMM) 0 Imaging/Other Studies: CT CTA 1. There are no acute bleeds or territorial infarcts. There are no masses or areas of abnormal enhancement. 2. There are patchy areas of low attenuation in the periventricular and subcortical white matter, consistent with chronic microvascular ischemic disease. There are multiple lacunar infarcts. In view of the relatively extensive distribution of these changes, a more acute area of ischemia cannot be excluded on the basis of this study. 3. Decreased flow is demonstrated from the right posterior cerebral artery. There is irregularity of the proximal sylvian branch of the right middle cerebral artery. There are moderate atheromatous calcifications of the left vertebral artery. No vascular malformations or aneurysms are demonstrated. Dopplers: There is minimal plaque present in the right internal carotid artery with normal velocities consistent with a minimal 0-49% stenosis. The left side is normal with no plaque seen. Assessment/Plan Assessment: CVA left body, right hemispheric, most likely sub-cortical small vessel syndrome multiple risk factors some intracranial atherosclerosis identified improved from admission but not resolved superimposed anxiety Recommendations: ASA 81 QD atorvastatin 80 mg QD BP management, eventual goal 130/70 telemetry Echo MRI brain education reassurance smoking cessation program drug abstention discussed with pt. Consult Acknowledgment - Thank you for your consult request.
[2017-06-21 21:36] VITALS: BP 122/60
[2017-06-22] VITALS: BP 122/60
[2017-06-22 06:40] VITALS: BP 120/80
--- NOTE | 2017-06-22 07:52 | PN- Housestaff ---
Nhi GRAHAM,Camilla 06/22/17 0752: Subjective Follow-up For: cva Complaints: no complaints Tele-Events Since Last Visit: nsr/first degree heart block .24 rates 62-70 Subjective: Patient is very anxious today. She states that her dizziness continues to come and go. She has a headache that was helped with Tylenol. Review of Systems Constitutional: Reports: no symptoms. EENTM: Reports: no symptoms. Cardiovascular: Reports: no symptoms. Respiratory: Reports: no symptoms. Gastrointestinal: Reports: no symptoms. Genitourinary: Reports: no symptoms. Musculoskeletal: Reports: no symptoms. Neurological/Psychological: Reports: see HPI, weakness. Objective Last 24 Hrs of Vital Signs/I&O Vital Signs Date Time Temp Pulse Resp B/P B/P Pulse O2 O2 Flow FiO2 Mean Ox Delivery Rate 06/22 0640 98.1 68 20 120/80 94 Room Air 06/22 0000 98.0 74 20 122/60 06/21 2136 98.0 74 20 122/60 97 Intake & Output 06/22 1600 06/22 0800 06/22 0000 Intake Total 500 100 480 Output Total 400 Balance 100 100 480 Intake, Oral 500 100 480 Output, Urine 400 Patient 217 lb Weight Weight Bed scale Measurement Method Physical Exam General Appearance: Alert, Oriented X3, Cooperative Skin: No Rashes, No Breakdown, No Significant Lesion HEENT: Atraumatic, PERRLA, EOMI, Mucous Membr. moist/pink, patient does not have nystagmus Cardiovascular: Regular Rate, Normal S1, Normal S2, No Murmurs Lungs: Clear to Auscultation, Normal Air Movement Abdomen: Normal Bowel Sounds, Soft, No Tenderness Neurological: Normal Speech, patient continues to have decreased strength on her left upper and left lower extremities. She continues to state that she has a little bit of weakness in the left side of her face but grimace is the same bilaterally. Patient has intact sensory and reflexes. Extremities: No Clubbing, No Cyanosis, No Edema, Normal Pulses Vascular: Normal Pulses Current Medications: Current Medications Sig/Gina Start time Last Medication Dose Route Stop Time Status Admin Acetaminophen 650 MG .STK-MED ONE 06/22 0050 DC PO 06/22 0051 Acetaminophen 650 MG ONCE ONE 06/21 2345 DC 06/22 PO 06/21 2346 0051 Aspirin 81 MG DAILY 06/21 0900 AC 06/22 PO 0948 Atorvastatin Calcium 80 MG 1700 06/20 1815 AC 06/21 PO 1805 Heparin Sodium 5,000 UNIT Q8 06/20 2200 AC 06/21 (Porcine) SC 1315 Insulin Aspart 0 TIDAC 06/21 0800 AC 06/22 SC 1158 Insulin Aspart 0 AT BEDTIME 06/20 2100 AC SC Lorazepam 2 MG ONCE ONE 06/22 0945 CAN PO 06/22 0946 Lorazepam 2 MG ONE ONE 06/22 0945 DC 06/22 IV 06/22 0946 0948 Lorazepam 0 Q1P PRN 06/21 0245 AC IV Melatonin 5 MG AT BEDTIME 06/21 2100 AC 06/21 PO 2109 Patient Medication 1 ED ONE ONE 06/21 1645 DC Teaching ED 06/21 1646 Last 24 Hrs of Lab/Hi Results Last 24 Hrs of Labs/Mics: Laboratory Tests 06/22/17 0650: Anion Gap 12, Estimated GFR 57 L, BUN/Creatinine Ratio 27.0 H, CBC w Diff NO MAN DIFF REQ, RBC 4.59, MCV 87.8, MCH 29.8, MCHC 33.9, RDW 13.7, MPV 8.5, Gran % 70.5, Lymphocytes % 18.9 L, Monocytes % 7.8, Eosinophils % 2.4, Basophils % 0.4 , Absolute Granulocytes 4.5, Absolute Lymphocytes 1.2, Absolute Monocytes 0.5, Absolute Eosinophils 0.1, Absolute Basophils 0 Assessment/Plan Assessment: This is a 56-year-old female with a past medical history significant for glucose intolerance, hypertension, brought in by ambulance for 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 Physical exam was suggestive of CVA with weakness throughout the left side of her body. The patient notes a considerable amount of stress in her daily life recently. She has a history of questionable drug use (cocaine). She is a current and long-time smoker. At home, the patient takes valsartan/hydrochlorothiazide and amlodipine for blood pressure and metformin for her sugar control. In the ED, her heart rate is 87, respiratory rate 18, blood pressure 122/63, 95% on room air. Chest x-ray is negative for any acute cardiopulmonary process. CTA shows chronic microvascular changes, with no acute bleed or territorial infarcts but decreased flow in the posterior right cerebral artery and moderate atheromatous changes in the left cerebral artery. She was given 325 mg of aspirin in the ED and Tylenol. Labs showed a slightly low bicarbonate of 18, BUN 29, creatinine 1.1, glucose 135, normal LFTs, mag, calcium, troponins. Patient has a family history of TIA and stroke and is a current smoker with a potential past medical history of cocaine use. Patient normally has some degree of dizziness and ambulates with a cane. He has never been worked up for any TIA or stroke in the past. Plan Patient is monitored in telemetry for the following 1. Left sided weakness -Monitor patient in telemetry for potential arrhythmias, she is currently in sinus rhythm. -Neurochecks every 8, NIH stroke scale assessment -Neurology consult was placed: CT head noncontrast showed multiple lacunar infarcts in bilateral basal ganglia and left caudate head, CTA shows decreased flow in her middle cerebral artery and posterior cerebellar artery secondary to atheromatous changes, not a candidate for thrombolytics as symptoms 24 hours prior to presentation. Patient most likely has subcortical small vessel syndrome as her entire left body is symptomatic. Her posterior cerebellar decreased flow may count for her dizziness although we will defer to neurology for potential confounding inner ear dizziness issues. -MRI brain: No acute infarct. Severe chronic white matter microangiopathy. Scattered chronic lacunar infarcts. Chronic microhemorrhages throughout the brain parenchyma as described. Findings may be due to chronic hypertensive encephalopathy or can be seen with amyloid angiopathy, the former favored over the latter. -Aspirin 81 mg and high-dose statin atorvastatin 80 mg -Doppler carotid ultrasound is normal, echocardiogram shows stage I diastolic dysfunction and an EF of 65%. -Informal swallow evaluation was done and determined the patient could tolerate food -Formal swallowing evaluation the morning, patient is currently on diet -U tox positive for cocaine which could've had a contribution to the patient's vascular disease. Drug abstention discussed with patient. -We can allow permissive hypertension in this patient and as such we will hold her antihypertensive medications amlodipine and valsartan/hydrochlorothiazide. Patient has been normotensive her entire stay. -Cholesterol levels normal -Fall precautions -PT suggested home physical therapy 2. Diabetes -Hemoglobin A1c 7.4 -Accu-Cheks and NovoLog sliding scale -Consisting carbohydrate 3 diet 3. History of drug use and social issues -U tox positive for cocaine -CIWA Ativan as needed -Nicotine patch and smoking cessation program -Social work consult. 4. Disposition -Social work for discharge planning -Patient will likely return to her mother's house. Full code DVT prophylaxis with heparin and Alps Insisting carbohydrate 3 diet Problem List: 1. CVA (cerebral vascular accident) Pain Ratin Pain Location: na Pain Goal: Remain pain free Pain Plan: na Tomorrow's Labs & Rationales: none Gaurav Harrell 06/22/17 1126: Attending MD Review Statement Attending Statement Attending MD Statement: examined this patient, discuss w/resident/PA/HYDRO ELECTRIC STATION OPERATOR, agreed w/resident/PA/HYDRO ELECTRIC STATION OPERATOR, discussed with family, reviewed EMR data (avail), discussed with nursing, discussed with case mgmt, reviewed images, amended to note Attending Assessment/Plan: Patient seen/examined bedside. Patient denies any new complaints. CTA with reduced blood supply in posterior vertebral artery. Urine drug screen is positive for cocaine. Neurology appreciated. MRI brain pending. She says claustrophobic and give ativan iv one time dose. PT consult f/u home self care. SW f/u to assess family situation. Neurochecks and fall precautions. Anticipate dc planning soon.
[2017-06-22 08:20] LABS: ABSOLUTE BASOPHIL COUNT 0 /CUMM (0.0-0.2); ABSOLUTE EOSINOPHIL COUNT 0.1 /CUMM (0.0-0.7); ABSOLUTE GRANULOCYTE CT 4.5 /CUMM (1.4-6.5); ABSOLUTE LYMPH COUNT 1.2 /CUMM (1.2-3.4); ABSOLUTE MONOCYTE COUNT 0.5 /CUMM (0.10-0.60); BASOPHIL % 0.4 % (0.0-2.0); EOSINOPHIL % 2.4 % (0-5); GRANULOCYTE % 70.5 % (42.2-75.2); HEMATOCRIT 40.3 % (37-47); MEAN CORPUSCULAR HGB 29.8 PG (27.0-31.0); MEAN CORPUSCULAR HGB CONC 33.9 G/DL (33.0-37.0); MEAN CORPUSCULAR VOLUME 87.8 FL (81.0-99.0); MEAN PLATELET VOLUME 8.5 FL (7.4-10.4); PLATELET COUNT 217 /CUMM (130-400); RBC DISTRIBUTION WIDTH 13.7 % (11.5-14.5); RED BLOOD CELL CT 4.59 /CUMM (4.20-5.40); WHITE BLOOD CELL COUNT 6.3 /CUMM (4.8-10.8)
--- NOTE | 2017-06-22 11:25 | MRI REPORT ---
EXAMINATION: MR BRAIN WITHOUT CONTRAST CLINICAL INFORMATION: Facial droop and weakness. Rule out stroke. COMPARISON: CT from 06/20/2017. TECHNIQUE: Multiplanar, multisequence imaging of the brain was performed without contrast. The study is limited due to motion artifacts. FINDINGS: No diffusion abnormalities are identified to suggest an acute infarct. The ventricles are normal in size. No mass effect or midline shift is seen. Severe chronic white matter microangiopathy is evident. There is generalized parenchymal volume loss. Scattered small chronic infarcts are visible in the deep luna matter structures and in the brainstem. No extra-axial fluid collections are seen. There is a small chronic cortical-based infarct in the medial left frontal lobe superiorly. There are numerous scattered chronic microhemorrhages in the brainstem, deep luna matter structures, cerebellum, and in the subcortical white matter of both hemispheres. The craniovertebral junction and marrow signal are normal. The major intracranial flow voids at the level of the [place] of [place] are preserved. The dural venous sinus flow voids are maintained. The mastoid air cells and paranasal sinuses are well aerated. IMPRESSION: Limited study with motion artifacts. No acute infarct. Severe chronic white matter microangiopathy. Scattered chronic lacunar infarcts. Chronic microhemorrhages throughout the brain parenchyma as described. Findings may be due to chronic hypertensive encephalopathy or can be seen with amyloid angiopathy, the former favored over the latter.
[2017-06-22] MEDS ORDERED: ATORVASTATIN CA80 M1 PO (11:32)
[2017-06-22] MEDS ORDERED: ASPIRIN81 M4 PO (11:32)
--- NOTE | 2017-06-22 11:35 | Patient Discharge Instructions ---
Discharge Instructions General Discharge Information You were seen/treated for: stroke You had these procedures: MRI brain echocardiogram ultrasound carotid arteries Watch for these problems: increased weakness increased dizziness falls headache Special Instructions: 1. please follow up with your primary care doctor in 1 week to discuss your chronic dizziness. 2. please take all medications as directed 3. please work with home physical therapy 4. please follow up with psychiatry as discussed Diet Continue normal diet: Yes Activity Full Activity/No Limits: Yes Acute Coronary Syndrome Inclusion Criteria At DC or during hospital stay patient has or had the following: ACS DIAGNOSIS No Discharge Core Measures Meds if any: Prescribed or Continued at Discharge Meds if any: NOT Prescribed or Continued at Discharge Congestive Heart Failure Inclusion Criteria At DC or during hospital stay patient has or had the following: CHF DIAGNOSIS No Discharge Core Measures Meds if any: Prescribed or Continued at Discharge Meds if any: NOT Prescribed or Continued at Discharge Cerebrovascular accident Inclusion Criteria At DC or during hospital stay patient has or had the following: CVA/TIA Diagnosis Yes Discharge Core Measures Meds if any: Prescribed or Continued at Discharge Statin (required if LDL =>70) Yes Meds if any: NOT Prescribed or Continued at Discharge Venous thromboembolism Inclusion Criteria VTE Diagnosis No VTE Type NONE VTE Confirmed by (Test) NONE Discharge Core Measures - Per Current guidelines, there needs to be overlap - treatment for the first 5 days of Warfarin therapy. - If discharged on Warfarin prior to 5 days of - overlap therapy, the patient will need to be - assessed for post discharge needs including - *Post discharge parental anticoagulation - *Warfarin and/or parental anticoagulation education - *Follow up date to check INR post discharge At least 5 days overlap therapy as Inpatient No Meds if any: Prescribed or Continued at Discharge Note: Overlap Therapy is Warfarin and Anticoagulant Meds if any: NOT Prescribed or Continued at Discharge
--- NOTE | 2017-06-22 13:02 | ECHOCARDIOGRAM REPORT ---
JERI OROZCO Age: 56 : 1960 Gender: F Exam Date: 06/21/2017 17:00 Exam Location: [address] [facility] Ht (in): 66 Wt (lb): 220 BSA: 2.20 BP: 110 / 70 Ordering Physician: Shirin Luciano MD Referring Physician: Shirin Luciano MD Technologist: Evelin Mckeon [facility] Room Number: 188 Indications: STROKE Rhythm: Sinus Technical Quality: Fair FINDINGS Left Ventricle Normal size left ventricle. Moderate to severe concentric left ventricular hypertrophy. No obvious regional wall motion abnormalities. Normal left ventricular ejection fraction visually estimated at >65 %. Abnormal relaxation filling pattern of the left ventricle for age (stage 1 diastolic dysfunction). Increased resting left ventricular outflow tract velocity (1.8 m/s). Right Ventricle Normal right ventricular size and function. Right Atrium Normal right atrial size. Left Atrium Normal left atrial size. Mitral Valve Moderate mitral annular calcification. Mitral valve thickened. Trace mitral regurgitation. Aortic Valve Trileaflet aortic valve. Mild aortic sclerosis. Mild aortic stenosis. Mild aortic regurgitation. Tricuspid Valve Structurally normal tricuspid valve. Trace tricuspid regurgitation. No evidence of pulmonary hypertension. Right ventricular systolic pressure estimated to be within the normal range at 22 mmHg. Pulmonic Valve Pulmonic valve not well visualized, grossly normal. No pulmonic regurgitation. Pericardium No pericardial effusion. Great Vessels Normal size aortic root. Dilated inferior vena cava. CONCLUSIONS Normal size left ventricle. Moderate to severe concentric left ventricular hypertrophy. No obvious regional wall motion abnormalities. Normal left ventricular ejection fraction visually estimated at >65 Abnormal relaxation filling pattern of the left ventricle for age (stage 1 diastolic dysfunction). Increased resting left ventricular outflow tract velocity (1.8 m/s). Normal right ventricular size and function. Normal atrial size. Trace mitral regurgitation. Mild aortic stenosis. Mild aortic regurgitation. Trace tricuspid regurgitation. No evidence of pulmonary hypertension. Dilated inferior vena cava. Memo Valentin M.D. (Electronically Signed) Final Date: 22 June 2017 13:01 MEASUREMENTS (Male / Female) Normal Values 2D ECHO LV Diastolic Diameter PLAX 4.2 cm 4.2 - 5.9 / 3.9 - 5.3 cm LV Systolic Diameter PLAX 2.4 cm 2.1 - 4.0 cm LV Fractional Shortening PLAX 42.9 % 25 - 46 % LV Ejection Fraction 2D Teich 74.3 % IVS Diastolic Thickness 1.8 cm LVPW Diastolic Thickness 1.6 cm LV Relative Wall Thickness 0.8 RV Internal Dim ED PLAX 2.0 cm 1.9 - 3.8 cm LVOT Diameter 2.2 cm Aortic Root Diameter 3.1 cm LA Systolic Diameter LX 4.2 cm 3.0 - 4.0 / 2.7 - 3.8 cm LA Volume 40.0 cm 18 - 58 / 22 - 52 cm Ascending Aorta Diameter 3.2 cm DOPPLER AV Peak Velocity 235.0 cm/s AV Peak Gradient 22.1 mmHg AV Mean Velocity 172.0 cm/s AV Mean Gradient 14.0 mmHg AV Velocity Time Integral 44.9 cm LVOT Peak Velocity 180.0 cm/s LVOT Peak Gradient 13.0 mmHg LVOT Mean Velocity 129.0 cm/s LVOT Mean Gradient 8.0 mmHg LVOT Velocity Time Integral 38.5 cm LVOT Stroke Volume 146.4 cm AV Area Cont Eq vti 3.3 cm AV Area Cont Eq pk 2.9 cm MV Peak Velocity 120.0 cm/s MV Peak Gradient 5.8 mmHg MV Mean Velocity 77.6 cm/s MV Mean Gradient 3.0 mmHg Mitral E Point Velocity 64.7 cm/s Mitral A Point Velocity 108.0 cm/s Mitral E to A Ratio 0.6 MV PHT Velocity 109.0 cm/s MV Deceleration [place] 425.0 cm/s MV Pressure Half Time 76.9 ms MV Area PHT 2.9 cm MV Deceleration Time 462.0 ms TR Peak Velocity 239.0 cm/s TR Peak Gradient 22.8 mmHg Right Atrial Pressure 5.0 mmHg Pulmonary Artery Systolic Pressu 27.8 mmHg Right Ventricular Systolic Press 27.8 mmHg PV Peak Velocity 105.0 cm/s PV Peak Gradient 4.4 mmHg PV Mean Velocity 68.7 cm/s PV Mean Gradient 2.0 mmHg PV Velocity Time Integral 24.0 cm LV E' Lateral Velocity 4.9 cm/s Mitral E to LV E' Lateral Ratio 13.3 LV E' Septal Velocity 3.2 cm/s Mitral E to LV E' Septal Ratio 20.1
[2017-06-22 15:16] VITALS: BP 13/80
[2017-06-22 16:19] VITALS: BP 134/80
[2017-06-22 22:50] VITALS: BP 138/84
[2017-06-23 07:22] VITALS: BP 140/80
--- NOTE | 2017-06-23 08:11 | PN- Housestaff ---
Nhi GRAHAM,Camilla 06/23/17 0811: Subjective Follow-up For: cva Complaints: no complaints Tele-Events Since Last Visit: Sinus rhythm 61-72 with first-degree heart block ND interval of 0.24 Subjective: Patient remains anxious and teary. She had a headache overnight and received Fioricet to good effect. The patient states that she has noted ago and cannot move back with her mother. She is amenable to psychiatry on discharge. Review of Systems Constitutional: Reports: no symptoms. Cardiovascular: Reports: no symptoms. Respiratory: Reports: no symptoms. Gastrointestinal: Reports: no symptoms. Genitourinary: Reports: no symptoms. Musculoskeletal: Reports: no symptoms. Neurological/Psychological: Reports: anxiety. Objective Last 24 Hrs of Vital Signs/I&O Vital Signs Date Time Temp Pulse Resp B/P B/P Pulse O2 O2 Flow FiO2 Mean Ox Delivery Rate 06/23 1451 97.5 74 20 142/86 97 Room Air 06/23 0722 97.9 88 20 140/80 97 Room Air 06/22 2250 97.7 70 20 138/84 96 Room Air 06/22 1619 134/80 06/22 1600 Room Air Intake & Output 06/23 1600 06/23 0800 06/23 0000 Intake Total 500 480 240 Output Total Balance 500 480 240 Intake, Oral 500 480 240 Patient 223 lb Weight Weight Bed scale Measurement Method Physical Exam General Appearance: Alert, Oriented X3, Cooperative, Mild Distress Skin: No Rashes, No Breakdown, No Significant Lesion Skin Temp/Moisture Exam: Warm/Dry HEENT: Atraumatic, EOMI, Mucous Membr. moist/pink Cardiovascular: Regular Rate, Normal S1, Normal S2, No Murmurs Lungs: Clear to Auscultation, Normal Air Movement Abdomen: Normal Bowel Sounds, Soft, No Tenderness Neurological: Normal Speech, Normal Tone, Sensation Intact, Cranial Nerves 3-12 NL, Reflexes 2+, strength remains at 3/5 in the left upper and lower extremities Extremities: No Clubbing, No Cyanosis, No Edema, Normal Pulses, No Tenderness/ Swelling Vascular: Normal Pulses, Pulses Symmetrical Current Medications: Current Medications Sig/Gina Start time Last Medication Dose Route Stop Time Status Admin Acetaminophen 650 MG ONCE ONE 06/23 1400 DC 06/23 PO 06/23 1401 1402 Acetaminophen 650 MG ONCE ONE 06/22 2215 DC 06/22 PO 06/22 2216 2205 Acetaminophen/ 1 TAB ONCE ONE 06/23 0400 DC 06/23 Butalbital/Caffeine PO 06/23 0401 0409 Aspirin 81 MG DAILY 06/21 0900 AC 06/23 PO 0758 Atorvastatin Calcium 80 MG 1700 06/20 1815 AC 06/22 PO 1730 Heparin Sodium 5,000 UNIT Q8 06/20 2200 AC 06/21 (Porcine) SC 1315 Insulin Aspart 0 TIDAC 06/21 0800 AC 06/23 SC 1356 Insulin Aspart 0 AT BEDTIME 06/20 2100 AC SC Lorazepam 0 Q1P PRN 06/21 0245 AC IV Melatonin 5 MG AT BEDTIME 06/21 2100 AC 06/22 PO 2245 Assessment/Plan Assessment: This is a 56-year-old female with a past medical history significant for glucose intolerance, hypertension, brought in by ambulance for 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 Physical exam was suggestive of CVA with weakness throughout the left side of her body. The patient notes a considerable amount of stress in her daily life recently. She has a history of questionable drug use (cocaine). She is a current and long-time smoker. At home, the patient takes valsartan/hydrochlorothiazide and amlodipine for blood pressure and metformin for her sugar control. In the ED, her heart rate is 87, respiratory rate 18, blood pressure 122/63, 95% on room air. Chest x-ray is negative for any acute cardiopulmonary process. CTA shows chronic microvascular changes, with no acute bleed or territorial infarcts but decreased flow in the posterior right cerebral artery and moderate atheromatous changes in the left cerebral artery. She was given 325 mg of aspirin in the ED and Tylenol. Labs showed a slightly low bicarbonate of 18, BUN 29, creatinine 1.1, glucose 135, normal LFTs, mag, calcium, troponins. Patient has a family history of TIA and stroke and is a current smoker with a potential past medical history of cocaine use. Patient normally has some degree of dizziness and ambulates with a cane. She has never been worked up for any TIA or stroke in the past. Plan Patient is monitored in telemetry for the following 1. Left sided weakness -Monitor patient in telemetry for potential arrhythmias, she is currently in sinus rhythm with only a first-degree heart block with a ND interval of 0.24. -Neurochecks every 8, NIH stroke scale assessment and fall precautions -Neurology consult was placed: CT head noncontrast showed multiple lacunar infarcts in bilateral basal ganglia and left caudate head, CTA shows decreased flow in her middle cerebral artery and posterior cerebellar artery secondary to atheromatous changes, not a candidate for thrombolytics as symptoms 24 hours prior to presentation. Patient most likely has subcortical small vessel syndrome as her entire left body is symptomatic. Her posterior cerebellar decreased flow may count for her dizziness although we will defer to neurology for potential confounding inner ear dizziness issues. -MRI brain: No acute infarct. Severe chronic white matter microangiopathy. Scattered chronic lacunar infarcts. Chronic microhemorrhages throughout the brain parenchyma as described. Findings may be due to chronic hypertensive encephalopathy or can be seen with amyloid angiopathy, the former favored over the latter. We can assume that before the patient began her antihypertensive she had uncontrolled hypertension for some time which caused the changes seen in the brain MRI and echocardiogram. -Aspirin 81 mg and high-dose statin atorvastatin 80 mg -Doppler carotid ultrasound is normal, echocardiogram shows stage I diastolic dysfunction and an EF of 65% along with moderate to severe concentric left ventricular hypertrophy. -Informal swallow evaluation was done and determined the patient could tolerate food -Formal swallowing evaluation the morning, patient is currently on diet -U tox positive for cocaine which could've had a contribution to the patient's vascular disease. Drug abstention discussed with patient. -We can allow permissive hypertension in this patient and as such we will hold her antihypertensive medications amlodipine and valsartan/hydrochlorothiazide. Patient has been normotensive her entire stay. We'll continue her antihypertensives outpatient. -Cholesterol levels normal -PT suggested home physical therapy but as patient is homeless, we will defer until she can secure a spot to live. 2. Diabetes -Hemoglobin A1c 7.4 -Accu-Cheks and NovoLog sliding scale -Consistent carbohydrate 3 diet 3. History of drug use and social issues -U tox positive for cocaine -CIWA Ativan as needed -Nicotine patch and smoking cessation program -Social work consult. 4. Disposition -Social work for discharge planning -Patient is not able to return to her mother's house so we'll find a penitentiary. Full code DVT prophylaxis with heparin and Alps Consistent carbohydrate 3 diet Problem List: 1. CVA (cerebral vascular accident) Pain Ratin Pain Location: na Pain Goal: Remain pain free Pain Plan: na Tomorrow's Labs & Rationales: rachana Gaurav Harrell 06/23/17 1147: Attending MD Review Statement Attending Statement Attending MD Statement: examined this patient, discuss w/resident/PA/ANIMAL LABORATORY HELPER, agreed w/resident/PA/ANIMAL LABORATORY HELPER, discussed with family, reviewed EMR data (avail), discussed with nursing, discussed with case mgmt, reviewed images, amended to note Attending Assessment/Plan: Patient vitals stable, No acute infarct. MRI with chronic changes. Cocaine positive in urine. Patient advised abstinence from drugs in future. Patient medically stable for discharge. Follow up outpatient PCP.
[2017-06-23] MEDS ORDERED: ATORVASTATIN CA80 M1 PO (14:09)
[2017-06-23] MEDS ORDERED: ASPIRIN81 M4 PO (14:09)
[2017-06-23 14:51] VITALS: BP 142/86
== END 2017-06-23 15:26 | DRG 45 ==
LOC: ERH 13:48 → ERHI 16:58 → 1NO 16:58 → ENRESERV 17:43 → ENTRNSPT 19:04 → EDTRNSPTSTS 19:25 → EDTRNSPT 19:25 → 1NO 19:30 → CMPTRNSPT 19:43 → 1NO 06-21 08:05 → ENPENDDIS 06-23 12:02 → ENTRNSPT 06-23 15:13 → EDTRNSPTSTS 06-23 15:23 → EDTRNSPT 06-23 15:23 → 1NO 06-23 15:26 → CMPTRNSPT 06-23 15:29
PROVIDERS: Emergency Medicine; Student in an Organized Health Care Education/Training Program
DX: I63.9 Cerebral infarction, unspecified (principal); G81.94 Hemiplegia, unspecified affecting left nondominant side; I67.2 Cerebral atherosclerosis; F41.9 Anxiety disorder, unspecified; F17.210 Nicotine dependence, cigarettes, uncomplicated; E66.3 Overweight; Z88.1 Allergy status to other antibiotic agents; E11.8 Type 2 diabetes mellitus with unspecified complications; Z79.84 Long term (current) use of oral hypoglycemic drugs; Z79.82 Long term (current) use of aspirin; I10 Essential (primary) hypertension; F14.90 Cocaine use, unspecified, uncomplicated; I44.0 Atrioventricular block, first degree; Z72.89 Other problems related to lifestyle; Z59.0 Homelessness
CPT/HCPCS: 1NP; 70551; 36592; 71045; 80307; 82436; 93005; 93010; 93306; 97116-GO; 97161-GP; 97166-GO; 97530-GO; J1644; J3490

== ENCOUNTER 2017-07-01 18:01 | Inpatient (IN) | payer OTHER ==
[~2017-07-01] VITALS: Ht 167.6 cm; Wt 99.8 kg
[~2017-07-01 18:01] MED LIST: AMLODIPINE BESY10 M1 PO; ASPIRIN81 M4 PO; ATORVASTATIN CA80 M1 PO; LIPITOR80 M1 PO; MECLIZINE HCL25 MG PO; METFORMIN HCL500 M2 PO; METFORMIN HCL500 M4 PO; VALSARTAN-HCTZ1 EAC3 PO; ZOFRAN ODT4 M1 SL
--- NOTE | 2017-07-01 19:29 | ED GENERAL ADULT ---
History of Present Illness General Chief Complaint: Dizziness Stated Complaint: +N, DIZZINESS, PER PT I FEEL LIKE I'M HAVING STROK Source: patient, family, staff Exam Limitations: no limitations Vital Signs & Intake/Output Vital Signs & Intake/Output Vital Signs Date Time Temp Pulse Resp B/P B/P Pulse O2 O2 Flow FiO2 Mean Ox Delivery Rate 07/02 0903 98.2 62 16 134/73 98 Room Air 07/02 0604 67 18 108/58 98 Room Air 07/02 0423 82 18 123/82 99 Room Air 07/02 0003 96.7 70 18 134/76 97 Room Air 07/02 2011 97.0 55 18 107/57 98 Room Air 07/01 1817 97.0 71 18 124/80 97 Room Air ED Intake and Output 07/02 0000 07/01 1200 Intake Total Output Total Balance Patient 220 lb Weight Allergies Coded Allergies: ciprofloxacin (Severe, ANAPHYLAXIS 06/20/17) apple (TONGUE THICKENS AND ITCHES 07/01/17) hazelnut (TONGUE THICKENS AND ITCHES 07/01/17) Reconcile Medications Amlodipine Besylate 10 MG TABLET 1 TAB PO DAILY htn (Reported) Amlodipine Besylate 10 MG TABLET 1 TAB PO DAILY htn Aspirin (Aspirin*) 81 MG TAB.CHEW 2 TAB PO DAILY heart health Aspirin (Aspirin*) 81 MG TAB.CHEW 81 MG PO DAILY cardiovascular health . Atorvastatin Calcium (Lipitor) 80 MG TABLET 1 TAB PO DAILY hypercholesterolemia Atorvastatin Calcium 80 MG TABLET 80 MG PO 1700 cholesterol . Meclizine HCl 25 MG TABLET 1 TAB PO TIDPRN VERTIGO Meclizine HCl 25 MG TABLET 1 TAB PO TIDPRN dizziness Metformin HCl (Metformin HCl ER) 500 MG TAB.ER.24H 2 TAB PO BID DM (Reported) Metformin HCl (Metformin HCl ER) 500 MG TAB.ER.24 2 TAB PO BID dm Ondansetron (Zofran Odt) 4 MG TAB.RAPDIS 1 TAB SL TID PRN nausea Valsartan/Hydrochlorothiazide (Valsartan-Hctz 320-25 MG Tab) 320 MG-25 MG TABLET 1 TAB PO DAILY HTN (Reported) Valsartan/Hydrochlorothiazide (Valsartan-Hctz 320-25 MG Tab) 320 MG-25 MG TABLET 1 TAB PO DAILY HTN Triage Note: 56F RETURNS FOR 4TH VISIT THIS WEEK (LAST VISIT TODAY) FOR CONTINUED DIZZINESS. PT WAS OBSERVED BY THIS RN WALKING AROUND HOSPITAL AFTER DISCHARGE EARLIER TODAY AND UNSURE IF PT EVER LEFT. CURRENTLY HOMELESS. STATES THE DIZZINESS OCCURS IN WAVES, WAS DX VERTIGO. AMBULATES WITH CANE. STATES SYMPTOMS HAVE BEEN GOING ON 1.5 YEARS. SPEECH IS CLEAR AND FACE IS SYMMETRICAL. STILL HAS SCOPALAMINE PATCH IN PLACE TO RIGHT Triage Nurses Notes Reviewed? yes Onset: Gradual Duration: day(s): Timing: recent history Injury Environment: home Severity: mild Modifying Factors: Improves With: rest. Associated Symptoms: weakness HPI: 56 yo woman was in ED all night last night, was discharged this AM after evaluation by PT and case management, presents for continued issues. She notes that, "I just don't feel right," associated with mild vertigo. She shares that she is also homeless and after discharge this morning from the ED, she spent the day in the waiting room, the lunch room. She denies Si/Hi/hallucinations, "But I'm reallly frustrated... I don't have any place to go and I don't know what to do." She notes that she did not eat or drink much today. She is otherwise well. (Hermann GRAHAM,Elliott Salas) Past History Travel History Traveled to [place] past 21 day No Medical History Any Pertinent Medical History? 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 No (Hermann GRAHAM,Elliott Salas) Review of Systems Review of Systems Constitutional: Reports: no symptoms. EENTM: Reports: no symptoms. Respiratory: Reports: no symptoms. Cardiovascular: Reports: no symptoms. GI: Reports: no symptoms. Genitourinary: Reports: no symptoms. Musculoskeletal: Reports: no symptoms. Skin: Reports: no symptoms. Neurological/Psychological: Reports: no symptoms. Hematologic/Endocrine: Reports: no symptoms. Immunologic/Allergic: Reports: no symptoms. All Other Systems: Reviewed and Negative (Hermann GRAHAM,Elliott Salas) Physical Exam Physical Exam General Appearance: well developed/nourished, no apparent distress Head: atraumatic, normal appearance Eyes: Bilateral: normal appearance. Ears, Nose, Throat: normal pharynx, normal ENT inspection Neck: normal inspection, supple, full range of motion Respiratory: normal breath sounds, chest non-tender, no respiratory distress, quiet respiration, lungs clear Cardiovascular: regular rate/rhythm Gastrointestinal: normal bowel sounds, soft, non-tender, no organomegaly Back: normal inspection, normal range of motion Extremities: normal inspection, normal capillary refill Neurologic/Psych: no motor/sensory deficits, awake, alert, oriented x 3 Skin: intact, normal color, warm/dry Core Measures ACS in differential dx? No CVA/TIA Diagnosis: No Sepsis Present: No Sepsis Focused Exam Completed? No (Hermann GRAHAM,Elliott Salas) Progress Differential Diagnoses I considered the following diagnoses in my evaluation of the patient: vertigo, dehydration vs other. Plan of Care: Orders Procedure Date/time Status Regular Diet 07/02 B Active Admit to inpatient psych 07/02 0840 Active CASE MANAGEMENT CONSULT 07/02 0529 Active BASIC METABOLIC PANEL 07/02 0430 Complete URINE DRUG SCREEN FOR ER ONLY 07/01 1928 Complete ETHANOL 07/01 1928 Complete COMPREHENSIVE METABOLIC PANEL 07/01 1928 Complete CBC WITHOUT DIFFERENTIAL 07/01 1928 Complete ED CRISIS PSYCH CONSULT 07/01 1928 Active Current Medications Sig/Gina Start time Last Medication Dose Stop Time Status Admin Aspirin Buffered 81 MG DAILY 07/02 0900 UNVr 07/02 (Ecotrin) 0903 Melatonin 10 MG AT BEDTIME 07/01 2100 UNVr 07/01 (Melatonin) 2155 Acetaminophen 650 MG Q4P PRN 07/01 2030 AC 07/01 (Tylenol) 210 Laboratory Tests 07/02/17 0421: Anion Gap 10, Estimated GFR 36 L, BUN/Creatinine Ratio 20.0, Glucose 121 H, Calcium 8.7 07/01/172028: Anion Gap 13, Estimated GFR 26 L, BUN/Creatinine Ratio 17.5, Glucose 116 H, Calcium 10.1, Total Bilirubin 0.7, AST 13 L, ALT 26, Alkaline Phosphatase 58, Total Protein 7.2, Albumin 4.3, Globulin 2.9, Albumin/Globulin Ratio 1.5, Serum Alcohol < 10.0 07/01/171942: Urine Opiates Screen < 100, Methadone Screen < 40, Barbiturate Screen 216 H, Ur Phencyclidine Scrn < 6.00, Amphetamines Screen < 100, U Benzodiazepines Scrn < 85, Urine Cocaine Screen 120, Urine Cannabis Screen < 5.00 07/01/171928: CBC w Diff NO MAN DIFF REQ, RBC 5.03, MCV 88.0, MCH 29.0, MCHC 32.9 L, RDW 14.2 , MPV 7.9, Gran % 65.7, Lymphocytes % 25.5, Monocytes % 6.6, Eosinophils % 1.8, Basophils % 0.4, Absolute Granulocytes 5.1, Absolute Lymphocytes 2.0, Absolute Monocytes 0.5, Absolute Eosinophils 0.1, Absolute Basophils 0 Diagnostic Imaging: Viewed by Me: CT Scan. Discussed w/RAD: CT Scan. Radiology Impression: PATIENT: JERI OROZCO PRESENT AGE: 56 PATIENT ACCOUNT NO: [id number] : 60 LOCATION: [facility] ORDERING PHYSICIAN: Elliott Mccrary MD SERVICE DATE: 07/01/17 EXAM TYPE: CAT - CT HEAD WO IV CONTRAST EXAMINATION: CT HEAD WITHOUT CONTRAST CLINICAL INFORMATION: Dizziness COMPARISON: 06/22/2017 TECHNIQUE: Contiguous axial imaging was performed from the skull base to vertex without intravenous administration of contrast. DLP: 618 mGy-cm FINDINGS: Asymmetric ventricular system left larger than right stable. Symmetrical white matter changes most consistent with terminal supply white matter chronic lacunar ischemic/infarct involving the vasquez radiata and centrum semiovale. In addition, there is involvement of the striatocapsular regions consistent with involvement of the lenticular striate arteries as well. There is no evidence of acute intracranial hemorrhage or territorial infarction. No abnormal mass effect or midline shift is seen. Guajardo to white matter differentiation is well preserved. No extra-axial fluid collections are identified. The ventricles are normal in size. The osseous structures and soft tissues are normal. The mastoid air cells and visualized portions of the paranasal sinuses are well aerated. IMPRESSION: No acute intracranial pathology. Stable chronic findings are recent imaging. DICTATED BY: Odell Myers MD DATE/TIME DICTATED:07/01/172030 ENVIRONMENTAL PLANNER:KARLOS DATE /TIME TRANSCRIBED:07/01/172030 CONFIDENTIAL, DO NOT COPY WITHOUT APPROPRIATE AUTHORIZATION. <Electronically signed in Other Vendor System> SIGNED BY: Odell Myers MD 07/01/172038 Initial ED EKG: none (Hermann GRAHAM,Elliott Salas) Differential Diagnoses I considered the following diagnoses in my evaluation of the patient: Comments: Psychiatry to hospitalize on [facility] for depression. (Harrison Olivarez MD) Departure Departure Disposition: STILL A PATIENT Condition: Stable Referrals: Patient Has No Primary Care Dr (PCP/Family) Departure Forms: Customer Survey General Discharge Information Comments 07/01/17, 21:31... elevated creatinine noted... will reat with iv fujilds.... will re-assess with labs in AM. 07/02/17, 5:06am... improved creatinine... will give ns x 1 liter more. pt to see case management and crises.... pt to be signed out to dr. olivarez, 7am (Hermann GRAHAM,Elliott Salas) Departure Clinical Impression Primary Impression: Depression Secondary Impressions: Acute renal failure, Dehydration, Homelessness Psych Admission Note Psychiatric Admission: I have seen and evaluated JERI OROZCO. I have also reviewed all the pertinent lab results and diagnostic results. JERI OROZCO will be admitted to our inpatient Psychiatric unit for treatment and care. (Harrison Olivarez MD) Critical Care Note Critical Care Note Critical Care Time: non-applicable (Elliott Mccrary MD)
--- NOTE | 2017-07-01 20:39 | CT SCAN REPORT ---
EXAMINATION: CT HEAD WITHOUT CONTRAST CLINICAL INFORMATION: Dizziness COMPARISON: 06/22/2017 TECHNIQUE: Contiguous axial imaging was performed from the skull base to vertex without intravenous administration of contrast. DLP: 618 mGy-cm FINDINGS: Asymmetric ventricular system left larger than right stable. Symmetrical white matter changes most consistent with terminal supply white matter chronic lacunar ischemic/infarct involving the vasquez radiata and centrum semiovale. In addition, there is involvement of the striatocapsular regions consistent with involvement of the lenticular striate arteries as well. There is no evidence of acute intracranial hemorrhage or territorial infarction. No abnormal mass effect or midline shift is seen. Guaajrdo to white matter differentiation is well preserved. No extra-axial fluid collections are identified. The ventricles are normal in size. The osseous structures and soft tissues are normal. The mastoid air cells and visualized portions of the paranasal sinuses are well aerated. IMPRESSION: No acute intracranial pathology. Stable chronic findings are recent imaging.
[2017-07-01 20:42] LABS: ABSOLUTE BASOPHIL COUNT 0 /CUMM (0.0-0.2); ABSOLUTE EOSINOPHIL COUNT 0.1 /CUMM (0.0-0.7); ABSOLUTE GRANULOCYTE CT 5.1 /CUMM (1.4-6.5); ABSOLUTE MONOCYTE COUNT 0.5 /CUMM (0.10-0.60); BASOPHIL % 0.4 % (0.0-2.0); EOSINOPHIL % 1.8 % (0-5); GRANULOCYTE % 65.7 % (42.2-75.2); HEMATOCRIT 44.2 % (37-47); MEAN CORPUSCULAR HGB CONC 32.9 G/DL (33.0-37.0); MEAN PLATELET VOLUME 7.9 FL (7.4-10.4); PLATELET COUNT 262 /CUMM (130-400); RBC DISTRIBUTION WIDTH 14.2 % (11.5-14.5); RED BLOOD CELL CT 5.03 /CUMM (4.20-5.40); WHITE BLOOD CELL COUNT 7.7 /CUMM (4.8-10.8)
--- NOTE | 2017-07-02 08:31 | ED PSYCH CRISIS CONSULTATION ---
Crisis Consult Basic Assessment Date of Consult: 07/02/17 Responsible Person/Accompanied By: self Insurance Authorization: Insurance #1: Insurance name: JOSE CHAN Phone number: Policy number: [id number] Group number: Authorization number: ED Provider: Patient's ED Provider: Hermann GRAHAM,Elliott Salas Primary Care Physician: Patient's PCP: Patient Has No Primary Care Dr PCP's Phone Number: Current Psychiatrist: none; PCP is Dr Yany CHAPIN Chief Complaint: Dizziness Patient's Quote: I can't believe my life has come to this Present Illness: Pt is a 56 yo female presenting yesterday to the ED last evening for the 2nd time that day and 3rd time past week with complaints of dizzyness and "not feeling right". Pt had a recent medical admission at [facility] for potential stroke. Pt has a hx of hypertension, glucose intolerance and walks with a cane. Pt is currently presenting as depressed and reporting SI with no prior hx of psychiatric tx or previous SI. Pt states I can't believe my life has come to this...why go on". 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 She reports after being fired related to issues of substance use she had been living in a hotel but once she depleted her savings briefly went to live with her mother but because of conflict is now homeless. Pt reports recently staying in a half-way in [place]. Pt reports her union sent her to [facility] substance treatment program in [facility] from Nov-Jan 2017 for cocaine and etoh abuse but otherwise has no other substance use or mental health tx history. Pt reports a long hx of etoh and cocaine use but is adamant it was only used on the weekends and didn't interfere with her job performance. She reports 1x drinking episode since leaving rehab and reports last cocaine use a few months ago although urine drug screening shows evidence of more recent use. Pt reports feeling hopeless and helpless and rates her depression a 12 out of 10. Pt states my life is not going well". She reports poor sleep; inability to concentrate and having no energy or motivation. Pt denies HI; AH/VH. Pt presents as alert, cooperative, tearful and OX3. Case reviewed with Dr Aguirre and pt recommended for inpatient psychiatric treatment. Pt in agreement with plan and signed in voluntarily for admission to [facility]. Patient's Address: [place] [address] Other Phone Number: Who Do You Live With? Patient/Self (homeless) Family/Informants Interviewed: pt requested not contacting family at this time Allergies - Coded Allergies: ciprofloxacin (Severe, ANAPHYLAXIS 06/20/17) apple (TONGUE THICKENS AND ITCHES 07/01/17) hazelnut (TONGUE THICKENS AND ITCHES 07/01/17) Current Medications - Scheduled Medications Amlodipine Besylate 10 MG TABLET 1 TAB PO DAILY htn (Reported) Entered as Reported by Shirin Luciano MD on 06/20/17 1725 Amlodipine Besylate 10 MG TABLET 1 TAB PO DAILY htn #30 TAB Prescribed by Harrison Olivarez MD on 07/01/17 Aspirin (Aspirin*) 81 MG TAB.CHEW 2 TAB PO DAILY heart health #60 TAB Prescribed by Harrison Olivarez MD on 07/01/17 Aspirin (Aspirin*) 81 MG TAB.CHEW 81 MG PO DAILY cardiovascular health #60 TAB Prescribed by Camilla Hankins MD on 06/23/17 Atorvastatin Calcium (Lipitor) 80 MG TABLET 1 TAB PO DAILY hypercholesterolemia #30 TAB Prescribed by Harrison Olivarez MD on 07/01/17 Atorvastatin Calcium 80 MG TABLET 80 MG PO 1700 cholesterol #30 TAB Prescribed by Camilla Hankins MD on 06/23/17 Meclizine HCl 25 MG TABLET 1 TAB PO TIDPRN VERTIGO #30 TAB Prescribed by Juan Mccrary MD on 07/01/17 Meclizine HCl 25 MG TABLET 1 TAB PO TIDPRN dizziness #30 TAB Prescribed by Harrison Olivarez MD on 07/01/17 Metformin HCl (Metformin HCl ER) 500 MG TAB.ER.24H 2 TAB PO BID DM (Reported) Entered as Reported by Shirin Luciano MD on 06/20/17 1732 Metformin HCl (Metformin HCl ER) 500 MG TAB.ER.24 2 TAB PO BID dm #60 TAB Prescribed by Harrison Olivarez MD on 07/01/17 Valsartan/Hydrochlorothiazide (Valsartan-Hctz 320-25 MG Tab) 320 MG-25 MG TABLET 1 TAB PO DAILY HTN (Reported) Entered as Reported by Shirin Luciano MD on 06/20/17 1725 Valsartan/Hydrochlorothiazide (Valsartan-Hctz 320-25 MG Tab) 320 MG-25 MG TABLET 1 TAB PO DAILY HTN #30 TAB Prescribed by Harrison Olivarez MD on 07/01/17 Scheduled PRN Medications Ondansetron (Zofran Odt) 4 MG TAB.RAPDIS 1 TAB SL TID PRN nausea #10 TAB Prescribed by Harrison Olivarez MD on 07/01/17 Laboratory Results: Laboratory Tests 07/02/17420: Anion Gap 10, Estimated GFR 36 L, BUN/Creatinine Ratio 20.0, Glucose 121 H, Calcium 8.7 07/01/172028: Anion Gap 13, Estimated GFR 26 L, BUN/Creatinine Ratio 17.5, Glucose 116 H, Calcium 10.1, Total Bilirubin 0.7, AST 13 L, ALT 26, Alkaline Phosphatase 58, Total Protein 7.2, Albumin 4.3, Globulin 2.9, Albumin/Globulin Ratio 1.5, Serum Alcohol < 10.0 07/01/171942: Urine Opiates Screen < 100, Methadone Screen < 40, Barbiturate Screen 216 H, Ur Phencyclidine Scrn < 6.00, Amphetamines Screen < 100, U Benzodiazepines Scrn < 85, Urine Cocaine Screen 120, Urine Cannabis Screen < 5.00 07/01/171928: CBC w Diff NO MAN DIFF REQ, RBC 5.03, MCV 88.0, MCH 29.0, MCHC 32.9 L, RDW 14.2 , MPV 7.9, Gran % 65.7, Lymphocytes % 25.5, Monocytes % 6.6, Eosinophils % 1.8, Basophils % 0.4, Absolute Granulocytes 5.1, Absolute Lymphocytes 2.0, Absolute Monocytes 0.5, Absolute Eosinophils 0.1, Absolute Basophils 0 Past History Past Medical History Neurological: CVA- L SIDED WEAKNESS EENT: NONE Cardiovascular: hypertension Respiratory: NONE Gastrointestinal: NONE Hepatic: NONE Renal: NONE Musculoskeletal: NONE Psychiatric: NONE Endocrine: diabetes Blood Disorders: NONE Cancer(s): NONE 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 Past Surgical History Surgical History: 1 Psychosocial History Strengths/Capabilities: former director of [employer] Psychiatric Treatment History Psych Treatment Psychiatric Treatment No Inpatient Treatment No Outpatient Treatment No Substance Use/Abuse History Drug Use/Abuse Substances Used/Abused Yes Substance Used/Abused Cocaine Last Used pt reports two months ago (pt tox screen positive for cocaine) How often wekends For how long 20+yrs Substance Abuse Treatment Substance Abuse Treatment Past Substance Abuse TX Yes Inpatient Treatment Yes Outpatient Treatment No Location of Treatment [facility] Reason for Treatment cocaine/etoh Dates of Treatment Nov-Jan 2017 Response to Treatment pt reports 1x etoh use since discharge from rehab but continued cocaine use leading to job loss. Comments: Pt reports long hx of etoh and cocaine use. Pt reports this issue contributed to her firing [employer] job. Current Mental Status Mental Status Orientation: Person, Place, Situation Affect: Depressed Speech: WNL Neuro-vegetative: Anhedonia, Appetite Decreased, Concentration Poor, Energy Decreased, Helpless, Loss of Interest, Sleep Disturbance Appearance Appearance- Dress/Hygiene: hospital scrubs' depressed affect; tearful; poor eye contact Behaviors Thought Process: WNL Thought Content: WNL Memory: WNL Insight: Fair SI/HI Risk Assessment Past Suicidal Ideation/Attempts No Current Suicidal Ideation/Att Yes Past Homicidal Ideation/Att: No Current Homicidal Ideation/Attempts No Degree of Intent: Thoughts/No Intent Danger To: Self Gravely Disabled: Poor Impulse Control, Poor Judgment Risk Factors: chronic/serious med cond., high anxiety/distress, SA/MH hospitalized, substance abuse, isolate/no social support, poor impulse control, lives alone, limited support Lethality Ratin PTSD Checklist PTSD Done? patient declined ED Management Sitter: Yes Restraints: No DSM5/PS Stressors/Medical Prob Diagnosis' (DSM 5, Stressors, Medical): Unspecified Depression F32.9 Cocaine Use D/O F14.20 Alcohol Use D/O F 10.20 homeless unemployed family conflict Current GAF: 20 Comments: Pt reports current SI and feeling hopeless, helpless associated with recent job loss, homelessness and lack of family support Departure Disposition Psych Medical Clearance Date: 07/02/17 Medically Cleared at: 0730 Time Started: 729 Time Ended: 814 Date Disposition Established: 07/02/17 Time Disposition Established: 899 Plan for Disposition - Modality: Inpatient Psychiatry Facility: [facility] Rationale for Disposition: mood stabilization and medication assessment/evaluation Type of IP Admission: Voluntary Referrals Patient Has No Primary Care Dr (PCP/Family)
--- NOTE | 2017-07-02 10:08 | IP CRISIS DIAG ASSESS PSYCH ---
Diagnostic Assessment Basic Assessment Insurance Authorization: Insurance #1: Insurance name: JOSE Barnes [employer] Phone number: Policy number: [id number] Group number: Authorization number: [id number] Primary Care Physician: Patient's PCP: Patient Has No Primary Care Dr PCP's Phone Number: Patient's Quote: I can't believe my life has come to this Present Illness: Pt is a 56 yo female presenting yesterday to the ED last evening for the 2nd time that day and 3rd time past week with complaints of dizzyness and "not feeling right". Pt had a recent medical admission at [facility] for potential stroke. Pt has a hx of hypertension, glucose intolerance and walks with a cane. Pt is currently presenting as depressed and reporting SI with no prior hx of psychiatric tx or previous SI. Pt states I can't believe my life has come to this...why go on". 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 She reports after being fired related to issues of substance use she had been living in a hotel but once she depleted her savings briefly went to live with her mother but because of conflict is now homeless. Pt reports recently staying in a detention in [place]. Pt reports her union sent her to [facility] substance treatment program in [facility] from Nov-Jan 2017 for cocaine and etoh abuse but otherwise has no other substance use or mental health tx history. Pt reports a long hx of etoh and cocaine use but is adamant it was only used on the weekends and didn't interfere with her job performance. She reports 1x drinking episode since leaving rehab and reports last cocaine use a few months ago although urine drug screening shows evidence of more recent use. Pt reports feeling hopeless and helpless and rates her depression a 12 out of 10. Pt states my life is not going well". She reports poor sleep; inability to concentrate and having no energy or motivation. Pt denies HI; AH/VH. Pt presents as alert, cooperative, tearful and OX3. Case reviewed with Dr Aguirre and pt recommended for inpatient psychiatric treatment. Pt in agreement with plan and signed in voluntarily for admission to [facility]. Patient's Address: [address] [place] [id number] Other Phone Number: Who Do You Live With? Patient/Self (homeless) Feel Safe Where You Live? No Feel Safe in Your Relationship No If No, Please Elaborate: pt currently homeless Marital Status: single Do You Have Children? No Primary Language? [place] Language(s) Spoken At Home: [place] Family/Informants Interviewed: pt requested not contacting family at this time Allergies - Coded Allergies: ciprofloxacin (Severe, ANAPHYLAXIS 06/20/17) apple (TONGUE THICKENS AND ITCHES 07/01/17) hazelnut (TONGUE THICKENS AND ITCHES 07/01/17) Current Medications - Scheduled Medications Amlodipine Besylate 10 MG TABLET 1 TAB PO DAILY htn (Reported) Entered as Reported by Shirin Luciano MD on 06/20/17 1725 Amlodipine Besylate 10 MG TABLET 1 TAB PO DAILY htn #30 TAB Prescribed by Harrison Olivarez MD on 07/01/17 Aspirin (Aspirin*) 81 MG TAB.CHEW 2 TAB PO DAILY heart health #60 TAB Prescribed by Harrison Olivarez MD on 07/01/17 Aspirin (Aspirin*) 81 MG TAB.CHEW 81 MG PO DAILY cardiovascular health #60 TAB Prescribed by Camilla Hankins MD on 06/23/17 Atorvastatin Calcium (Lipitor) 80 MG TABLET 1 TAB PO DAILY hypercholesterolemia #30 TAB Prescribed by Harrison Olivarez MD on 07/01/17 Atorvastatin Calcium 80 MG TABLET 80 MG PO 1700 cholesterol #30 TAB Prescribed by Camilla Hankins MD on 06/23/17 Meclizine HCl 25 MG TABLET 1 TAB PO TIDPRN VERTIGO #30 TAB Prescribed by Juan Mccrary MD on 07/01/17 Meclizine HCl 25 MG TABLET 1 TAB PO TIDPRN dizziness #30 TAB Prescribed by Harrison Olivarez MD on 07/01/17 Metformin HCl (Metformin HCl ER) 500 MG TAB.ER.24H 2 TAB PO BID DM (Reported) Entered as Reported by Shirin Luciano MD on 06/20/17 1732 Metformin HCl (Metformin HCl ER) 500 MG TAB.ER.24 2 TAB PO BID dm #60 TAB Prescribed by Harrison Olivarez MD on 07/01/17 Valsartan/Hydrochlorothiazide (Valsartan-Hctz 320-25 MG Tab) 320 MG-25 MG TABLET 1 TAB PO DAILY HTN (Reported) Entered as Reported by Shirin Luciano MD on 06/20/17 1725 Valsartan/Hydrochlorothiazide (Valsartan-Hctz 320-25 MG Tab) 320 MG-25 MG TABLET 1 TAB PO DAILY HTN #30 TAB Prescribed by Harrison Olivarez MD on 07/01/17 Scheduled PRN Medications Ondansetron (Zofran Odt) 4 MG TAB.RAPDIS 1 TAB SL TID PRN nausea #10 TAB Prescribed by Harrison Olivarez MD on 07/01/17 Consequences of Psych Med Use: pt no hx of psychiatric medicine Lab Results: Laboratory Tests 07/02/17420: Anion Gap 10, Estimated GFR 36 L, BUN/Creatinine Ratio 20.0, Glucose 121 H, Calcium 8.7 07/01/172028: Anion Gap 13, Estimated GFR 26 L, BUN/Creatinine Ratio 17.5, Glucose 116 H, Calcium 10.1, Total Bilirubin 0.7, AST 13 L, ALT 26, Alkaline Phosphatase 58, Total Protein 7.2, Albumin 4.3, Globulin 2.9, Albumin/Globulin Ratio 1.5, Serum Alcohol < 10.0 07/01/171942: Urine Opiates Screen < 100, Methadone Screen < 40, Barbiturate Screen 216 H, Ur Phencyclidine Scrn < 6.00, Amphetamines Screen < 100, U Benzodiazepines Scrn < 85, Urine Cocaine Screen 120, Urine Cannabis Screen < 5.00 07/01/171928: CBC w Diff NO MAN DIFF REQ, RBC 5.03, MCV 88.0, MCH 29.0, MCHC 32.9 L, RDW 14.2 , MPV 7.9, Gran % 65.7, Lymphocytes % 25.5, Monocytes % 6.6, Eosinophils % 1.8, Basophils % 0.4, Absolute Granulocytes 5.1, Absolute Lymphocytes 2.0, Absolute Monocytes 0.5, Absolute Eosinophils 0.1, Absolute Basophils 0 Toxicology Screen Completed? Yes Symptoms of Use: pt has a hx of cocaine and etoh use Past History Abuse/Trauma History Trauma History/Current Trauma: Denies Legal History Current Legal Status: none Psychosocial History Strengths/Capabilities: former director of [employer] Psychiatric Treatment History Psych Treatment Psychiatric Treatment No Inpatient Treatment No Outpatient Treatment No Risk Factors: chronic/serious med cond., high anxiety/distress, SA/MH hospitalized, substance abuse, isolate/no social support, poor impulse control, lives alone, limited support Substance Use/Abuse History Drug Use/Abuse minimum 12mo Hx Substances Used/Abused Yes Substance Used/Abused Cocaine Last Used pt reports two months ago (pt tox screen positive for cocaine) How often wekends For how long 20+yrs Substance Abuse Treatment Substance Abuse Treatment Past Substance Abuse TX Yes Inpatient Treatment Yes Outpatient Treatment No Location of Treatment [facility] Reason for Treatment cocaine/etoh Dates of Treatment Nov-Jan 2017 Response to Treatment pt reports 1x etoh use since discharge from rehab but continued cocaine use leading to job loss. Education History Highest Level of Education: some college Preferred Learning Style: visual, auditory, experiential Current Mental Status Mental Status Orientation: Person, Place, Situation Affect: Depressed Speech: WNL Neuro-vegetative: Anhedonia, Appetite Decreased, Concentration Poor, Energy Decreased, Helpless, Loss of Interest, Sleep Disturbance Appearance Appearance- Dress/Hygiene: hospital scrubs' depressed affect; tearful; poor eye contact Behaviors Thought Process: WNL Thought Content: WNL Memory: WNL Insight: Fair SI/HI Risk Assessment - Minimum 6mo History- Past Suicidal Ideation/Attempts No Current Suicidal Ideation/Att Yes Past Homicidal Ideation/Att: No Current Homicidal Ideation/Attempts No Degree of Intent: Thoughts/No Intent Danger To: Self Gravely Disabled: Poor Impulse Control, Poor Judgment Risk Factors: chronic/serious med cond., high anxiety/distress, SA/MH hospitalized, substance abuse, isolate/no social support, poor impulse control, lives alone, limited support Lethality Ratin Needs/Init TX Plan/Goals: Psychiatric assessment Medication evaluation Individual, group and family meetings Coordinated discharge planning AUDIT-C Questionnaire: AUDIT-C Questionnaire: Response Value ETOH use in the past year Monthly or less 1 # drinks typical/day Doesn't Drink 0 6 or > drinks per occasion Less than monthly 1 Total 2 DSM5/PS Stressors/Medical Prob Diagnosis' (DSM 5, Stressors, Medical): Unspecified Depression F32.9 Cocaine Use D/O F14.20 Alcohol Use D/O F 10.20 homeless unemployed family conflict Current GAF: 20 Comments: Pt reports current SI and feeling hopeless, helpless associated with recent job loss, homelessness and lack of family support
[2017-07-02 12:05] VITALS: BP 124/77
--- NOTE | 2017-07-02 14:27 | History & Physical ---
General Information and HPI MD Statement: I have seen and personally examined TIANNAJERI KRAUS and documented this H&P. The patient is a 56 year old F who presented with a patient stated chief complaint of anxiety and suicidal ideations. Has a histroy of hypertension, stroke, was recently in hospital for suspected stroke, glucose intolerance. Currently denies any specific symptoms. []. History of Present Illness: The patient is a 56 year old F who presented with a patient stated chief complaint of anxiety and suicidal ideations. Has a histroy of hypertension, stroke, was recently in hospital for suspected stroke, glucose intolerance. Currently denies any specific symptoms. Patient has just not been taking medications recently. Allergies/Medications Allergies: Coded Allergies: ciprofloxacin (Severe, ANAPHYLAXIS 06/20/17) apple (TONGUE THICKENS AND ITCHES 07/01/17) hazelnut (TONGUE THICKENS AND ITCHES 07/01/17) Home Med list Amlodipine Besylate 10 MG TABLET 1 TAB PO DAILY htn (Reported) Aspirin (Aspirin*) 81 MG TAB.CHEW 81 MG PO DAILY cardiovascular health . Atorvastatin Calcium 80 MG TABLET 80 MG PO 1700 cholesterol . Meclizine HCl 25 MG TABLET 1 TAB PO TIDPRN VERTIGO Metformin HCl (Metformin HCl ER) 500 MG TAB.ER.24H 2 TAB PO BID DM (Reported) Ondansetron (Zofran Odt) 4 MG TAB.RAPDIS 1 TAB SL TID PRN nausea Valsartan/Hydrochlorothiazide (Valsartan-Hctz 320-25 MG Tab) 320 MG-25 MG TABLET 1 TAB PO DAILY HTN (Reported) Past History Travel History Traveled to [place] past 21 day No Medical History Neurological: CVA- L SIDED WEAKNESS EENT: NONE Cardiovascular: hypertension Respiratory: NONE Gastrointestinal: NONE Hepatic: NONE Renal: NONE Musculoskeletal: NONE Psychiatric: NONE Endocrine: diabetes Blood Disorders: NONE Cancer(s): NONE 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 Home Primary Language: Swedish ETOH Use: denies use Illicit Drug Use: denies illicit drug use Functional Ability ADLs Independent: dressing, eating, toileting, bathing. Ambulation: cane Review of Systems Review of Systems Constitutional: Reports: no symptoms. Cardiovascular: Reports: no symptoms. Respiratory: Reports: no symptoms. GI: Reports: no symptoms. Genitourinary: Reports: no symptoms. Exam & Diagnostic Data Last 24 Hrs of Vital Signs/I&O Vital Signs Date Time Temp Pulse Resp B/P B/P Pulse O2 O2 Flow FiO2 Mean Ox Delivery Rate 07/02 1205 97.2 67 124/77 07/02 0903 98.2 62 16 134/73 98 Room Air 07/02 0604 67 18 108/58 98 Room Air 07/02 0423 82 18 123/82 99 Room Air 07/02 0003 96.7 70 18 134/76 97 Room Air 07/02 2011 97.0 55 18 107/57 98 Room Air 07/01 1817 97.0 71 18 124/80 97 Room Air Intake & Output 07/02 1600 07/02 0800 07/02 0000 Intake Total Output Total Balance Patient 220 lb 220 lb Weight Physical Exam General Appearance Alert, Oriented X3 HEENT Atraumatic, PERRLA Cardiovascular Regular Rate, Normal S1, Normal S2 Lungs Clear to Auscultation Abdomen Normal Bowel Sounds, Soft Neurological Normal Gait, Normal Speech Last 24 Hrs of Labs/Hi: Laboratory Tests 07/02/17420: Anion Gap 10, Estimated GFR 36 L, BUN/Creatinine Ratio 20.0, Glucose 121 H, Calcium 8.7 07/01/172028: Anion Gap 13, Estimated GFR 26 L, BUN/Creatinine Ratio 17.5, Glucose 116 H, Calcium 10.1, Total Bilirubin 0.7, AST 13 L, ALT 26, Alkaline Phosphatase 58, Total Protein 7.2, Albumin 4.3, Globulin 2.9, Albumin/Globulin Ratio 1.5, Serum Alcohol < 10.0 07/01/171942: Urine Opiates Screen < 100, Methadone Screen < 40, Barbiturate Screen 216 H, Ur Phencyclidine Scrn < 6.00, Amphetamines Screen < 100, U Benzodiazepines Scrn < 85, Urine Cocaine Screen 120, Urine Cannabis Screen < 5.00 07/01/171928: CBC w Diff NO MAN DIFF REQ, RBC 5.03, MCV 88.0, MCH 29.0, MCHC 32.9 L, RDW 14.2 , MPV 7.9, Gran % 65.7, Lymphocytes % 25.5, Monocytes % 6.6, Eosinophils % 1.8, Basophils % 0.4, Absolute Granulocytes 5.1, Absolute Lymphocytes 2.0, Absolute Monocytes 0.5, Absolute Eosinophils 0.1, Absolute Basophils 0 Assessment/Plan As Ranked By This Provider Problem List: 1. Dehydration 2. Homelessness 3. Acute renal failure 4. Depression Core Measures/Misc (11/21) Acute Coronary Syndrome ACS Diagnosis: No Congestive Heart Failure Congestive Heart Failure Diagnosis No Cerebrovascular Accident CVA/TIA Diagnosis: No VTE (View Protocol) VTE Risk Factors Other No Mechanical VTE Prophylaxis d/t LowRisk-No Interven Req'd No VTE Pharm Prophylaxis d/t LowRisk-No Interven Req'd Sepsis (View protocol) Sepsis Present: No Attending MD Review Statement Attending Statement Attending MD Statement: examined this patient, reviewed EMR data (avail), discussed with nursing Attending Assessment/Plan: Ms. Rodriguez is a 56 y/o female admitted with anxiety and suicidal ideations. Has a history of hypertension, stroke, glucose intolerance. 1. Anxiety and depression 2. Hypertension - Agree with holding home hypertensives. Can start Amlodipine now. Start other antihypertensives as needed once AYLA is better 3. Glucose intolerance 4. AYLA - resolving -
--- NOTE | 2017-07-02 15:32 | CPS PROVIDER INIT ASMT PSYCH ---
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 she was recently admitted medically for potential stroke. She stayed in the hospital areas not as a patient last night and was referred to crisis. She is depressed, withdrawn, anhedonic, poor sleep and poor appetite. In context of losing her job due to drug use, failing in rehab, and recent homelessness. She has also been isolated from her family due to her drug use recently. She is not psychotic or manic. She is pleasant and cooperative, and help seeking. Stated that she was scared when she had suicidal thoughts and has no wishes to , though feels that if she did no one would care. She is agreeable to treatment. Past Psychiatric History Past Diagnosis(es)- if any: etoh use and cocaine use, unspecified depressive disorder Past Precipitating Factors- if any: poor support and homelessness - Include inpatient and outpatient treatment Treatment History: rehab no psych tx History of Suicide Attempts or Gestures she denied Substance Abuse History: significant for alcohol and cocaine, denied recent use in last 3 months though cocaine positive. stated she was in rehab in the fall through her work Allergies: Coded Allergies: ciprofloxacin (Severe, ANAPHYLAXIS 06/20/17) apple (TONGUE THICKENS AND ITCHES 07/01/17) hazelnut (TONGUE THICKENS AND ITCHES 07/01/17) Home Med List: see list - Include any medical condition(s) that may - impact the patient's recovery/remission Past Medical History: htn, dm, hx cva ? 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 History of MRSA: No History of VRE: No History of CDIFF: No Surgical History Surgical History: unobtainable Psychiatric Family/Social Hx Family History Psychiatric Illness: stated that she thinks sister saw a counselor Substance Use: does not know Suicides: grandfather attempted suicide Social History Living Situation: homeless Significant Relationships (family/friends): isolated from family; not no children Education: hs and some college Vocation/Occupation: worked in [employer] until fired for drug use Legal: no Healthly Behaviors Screening Tobacco Screening Tobacco Use from ED Docu: Current Daily Use Daily Tobacco Use Amount/Type: => 5 Cigarettes daily - If tobacco counseling indicated - the following topics are required. - #1 Recognizing dangerous situations. - #2 Coping Skills. - #3 Basic information about quitting. Status of Tobacco Cessation Counseling: #1, #2 AND #3 Completed Cessation Med Status Nicotine Gum Ordered Alcohol Screening - ETOH screen POS if BAL >=80 or Audit-C>= M4/F3 Audit-C Score from Diag Assess: 2 Blood Alcohol Level: Laboratory Tests 07/01 2028 Toxicology Serum Alcohol (<10 MG/DL) < 10.0 Alcohol Use Screening Results: Pos per Audit C &/or BAL - If ETOH counseling indicated - the following topics are required. - #1 Express concern about the patient's - drinking at unhealthy levels, include informing - of national norms for moderate drinking: - men <= 14 drinks/week, max 4 drinks/occasion - women <= 7 drinks/week, max 3 drinks/occasion - #2 Providing feedback, including linking alcohol to - negative physical effects (liver injury, hypertension) - negative emotional effects (relationship problems and - depression) - negative occupational consequences (reduced work - performance) - #3 Advising the patient to abstain from alcohol or - to drink below national norms for moderate drinking - (as listed above). Status of ETOH Use Counseling: #1, #2 AND #3 Completed. Metabolic Screening - Screen if on a Neuroleptic Medication - Metabolic screening should include: - Blood Pressure, BMI, Glucose or Hgb A1c, & a - Lipid profile from within the past 365 days. Metabolic Screening () Not Applicable, patient not on a neuroleptic. OR () Patient on a neuroleptic(s) . Enter below results for Hemoglobin A1C, and lipid panel if obtained during the last 365 days. BMI: 35.500 Blood Pressure: 124/77 Laboratory Results From [facility] (If applicable): Exam and Plan Mental Status Examination Ambulation Status: with walker Appearance: poor grooming Attitude towards examiner: pleasant Psychomotor activity: normal Behavior: calm Quality of speech: normal Affect: constricted Mood: down Suicidal Ideation: none active but sometimes thinks she would be better off not alive Homicidal Ideation: o Hallucinations: no Paranoid/Delusional Material: no Difficulties with thought organization: no Insight: fair Judgment: fair Orientation: intact Cognition: intact Memory Function: intact Estimate of intellectual functioning: average Assets/Strengths Patient Identified Assets/Strengths: hx of work, hx sobriety, well related Impression/Plan Impression and Plan: 56 year old woman with depressed mood, passive si, hopeless, poor appetite, poor sleep, poor concentration, alcohol and cocaine use remotely; recent loss of work and housing. Plan: start zoloft 50mg for depression, AE discussed buspar 10mg tid for anxiety, AE and indications discussed Cr improving, was 2.0 yesterday now 1.5; recheck on tuesday. consider family involvement if she is amenable in the future. - Include all active medical diagnosis that require tx DSM 5 Diagnosis(es): unspecified depressive do - Initial Tx Plan for Active Psych & Medical Conditions Treatment Plan: multidisc, milieu, groups, therapy, meds, substance use. educated about risks of tobacco use on health, offered gum and discussed about cuttign down further on discharge. educated about risks of alcohol on health, denied any recent use, minimizing her recent use. wants to go to AA on discharge. - Factors that would help patient function - in a less restrictive setting. Factors: alcohol cocaine use, homeless, lack of social support. Address with evaluation, family collateral if she is ageeable, medication, groups, milieu
[2017-07-02 15:35] VITALS: BP 127/69
--- NOTE | 2017-07-02 16:57 | SOCIAL WORKER SOCIAL HX PSYCH ---
Social History Basic Assessment Insurance Authorization: Insurance #1: Insurance name: JOSE Barnes [employer] Phone number: Policy number: [id number] Group number: Authorization number: Curr Source of Income/Entitlements: Patient currently has no source of income. Primary Care Physician: Patient's PCP: Patient Has No Primary Care Dr PCP's Phone Number: Present Problem: Today, patient presented as alert, depressed, anxious, tearful at times, orientated x3 with congruent mood and affect. Patient denies SI/HI/AH/VH. Patient endorses that she feels helpless/hopless at times. Patient states she feels guilty that she has not been doing anything to help herself today. Patient identifies primary stressors as being homeless and unemployed. Patient agrees she needs treatment for alcohol dependence and is willing to engage in IOP, AA post-discharge. From Daignostic assessment of Prachi Barry: Patient's Quote: I can't believe my life has come to this Present Illness: Pt is a 56 yo female presenting yesterday to the ED last evening for the 2nd time that day and 3rd time past week with complaints of dizzyness and "not feeling right". Pt had a recent medical admission at [place] for potential stroke. Pt has a hx of hypertension, glucose intolerance and walks with a cane. Pt is currently presenting as depressed and reporting SI with no prior hx of psychiatric tx or previous SI. Pt states I can't believe my life has come to this...why go on". 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 She reports after being fired related to issues of substance use she had been living in a hotel but once she depleted her savings briefly went to live with her mother but because of conflict is now homeless. Pt reports recently staying in a [facility] in [place]. Pt reports her union sent her to [facility] substance treatment program in [facility] from Nov-Jan 2017 for cocaine and etoh abuse but otherwise has no other substance use or mental health tx history. Pt reports a long hx of etoh and cocaine use but is adamant it was only used on the weekends and didn't interfere with her job performance. She reports 1x drinking episode since leaving rehab and reports last cocaine use a few months ago although urine drug screening shows evidence of more recent use. Pt reports feeling hopeless and helpless and rates her depression a 12 out of 10. Pt states my life is not going well". She reports poor sleep; inability to concentrate and having no energy or motivation. Pt denies HI; AH/VH. Pt presents as alert, cooperative, tearful and OX3. Case reviewed with Dr Aguirre and pt recommended for inpatient psychiatric treatment. Pt in agreement with plan and signed in voluntarily for admission to [facility]. Primary Language? South Sudanese Language(s) Spoken At Home: [place] Sudanese Living Situation Other Living Arrangement: homeless in [facility] Residential Care/Treatment Fac N/A Feel Safe Where You Are Living Yes Feel Safe in Relationships? Yes Comments: Patient was residing at [facility] in [place], [place] prior to hospitalization. Allergies - Coded Allergies: ciprofloxacin (Severe, ANAPHYLAXIS 06/20/17) apple (TONGUE THICKENS AND ITCHES 07/01/17) hazelnut (TONGUE THICKENS AND ITCHES 07/01/17) Current Medications - Scheduled Medications Amlodipine Besylate 10 MG TABLET 1 TAB PO DAILY htn (Reported) Entered as Reported by Shirin Luciano MD on 06/20/17 172 Last Taken: 06/30/17 Aspirin (Aspirin*) 81 MG TAB.CHEW 81 MG PO DAILY cardiovascular health #60 TAB Prescribed by Camilla Hankins MD on 06/23/17 Last Taken: 06/30/17 Atorvastatin Calcium 80 MG TABLET 80 MG PO 1700 cholesterol #30 TAB Prescribed by Camilla Hankins MD on 06/23/17 Last Taken: 06/30/17 Meclizine HCl 25 MG TABLET 1 TAB PO TIDPRN VERTIGO #30 TAB Prescribed by Juan Mccrary MD on 07/01/17 Last Taken: 06/30/17 Metformin HCl (Metformin HCl ER) 500 MG TAB.ER.24H 2 TAB PO BID DM (Reported) Entered as Reported by Shirin Luciano MD on 06/20/17 1732 Last Taken: 06/30/17 Valsartan/Hydrochlorothiazide (Valsartan-Hctz 320-25 MG Tab) 320 MG-25 MG TABLET 1 TAB PO DAILY HTN (Reported) Entered as Reported by Shirin Luciano MD on 06/20/17 1725 Last Taken: 06/30/17 Scheduled PRN Medications Ondansetron (Zofran Odt) 4 MG TAB.RAPDIS 1 TAB SL TID PRN nausea #10 TAB Prescribed by Harrison Olivarez MD on 07/01/17 Last Taken: At an unknown date and time Consequences of Psych Med Use: None noted Comments: None Past History Past Medical History Neurological: CVA- L SIDED WEAKNESS EENT: NONE Cardiovascular: hypertension Respiratory: NONE Gastrointestinal: NONE Hepatic: NONE Renal: NONE Musculoskeletal: NONE Psychiatric: NONE Endocrine: diabetes Blood Disorders: NONE Cancer(s): NONE 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 No Mother's Age (Current/): 80 Relationship w/Mother: "Sad I do not have one now because of my older sister." Father's Age (Current/): 79 () Relationship w/Father: "Good" Any Sibling(s)? Yes Sibling's Gender(s)/Age(s): male Sibling 1:, female Sibling 2: Relationship w/Sibling(s): "My younger sister is evil." "My brother helps me, but he has his own family to tyake care of." Relationship w/Friends: Patient is isolating from most friends. "Briana is a good friend." Family Psych/Sub Abuse/Add Hx: drug of choice Number of Pregnancies: 0 Number of Miscarriages: 0 Number of Abortions: 0 Other Comments: N/A Abuse/Trauma History Trauma History/Current Trauma: Denies Abuse/Trauma Treatment: N/A Legal History Legal Guardian/Address/Phone: N/A Current Legal Status: none Pending Court Dates: None Have you ever been arrested No Hx of Juvenile Legal Charges? No Hx of Adult Legal Charges? No Civil Proceedings: None Domestic Relations Court: None Child Protective Serv Involvmnt None Net Washer N/A Psychosocial History Primary Support System: sibling(s) Strengths/Capabilities: Former director of [employer] Weaknesses: Patient lacks insight into the negative consequences of using alcohol and cocaine. Physical Limitations (Interventions): Patient ambulates with walker/cane. Last Physical: Cannot recall History of Seizures? No History of Blackouts? No ADL Limitations: None [place]/Social/Peer Relations "Briana is a good friend." Patient states she is choosing to isolate from other friends. Meaningful Activities: Patient states she likes to read and used to like to socialize with friends. Childhood Alevism: Restorationist Current Jainism Affiliation: Restorationist Is Spirituality Important to You? "Yes" Patient's Ethnicity: South Sudanese (Cymro), Gambian, Armenian Cultural/Ethnic Issues: None Are There Developmental Issues? No Milestones Achieved: fine motor, gross motor Psychiatric Treatment History Psych Treatment Inpatient Treatment No Outpatient Treatment No Current Instrument Tester: No current psych provider Treatment of Prior Episodes: No prior episodes Diagnosis: Alcohol dependence, cocaine dependence, depression, anxiety Psychodynamic Issues: Finances, homeless, social supports, primary supports, employment Risk Factors: chronic/serious med cond., high anxiety/distress, SA/MH hospitalized, substance abuse, isolate/no social support, poor impulse control, lives alone, limited support Substance Use/Abuse History Drug Use/Abuse Substance Used/Abused Cocaine Last Used pt reports two months ago (pt tox screen positive for cocaine) How often weekends For how long 20+yrs Have Had Periods of Sobriety? Yes Explain: Patient reports having periods of sobriety but did not articulate the length or history of periods. Relapse History? Yes Explain: Patient relapsed recently with alcohol and cocaine. Patient reports attending AA in the past. Have You Ever Attended AA? Yes Do You Attend AA Currently? No Do You Have a Sponsor? No Other Community Resources Used: [facility] Symptoms of Use: Pt has a hx of cocaine and etoh use Substance Abuse Treatment Substance Abuse Treatment Inpatient Treatment Yes Outpatient Treatment No Location of Treatment [facility] Reason for Treatment cocaine/etoh Dates of Treatment Nov-Jan 2017 Response to Treatment pt reports 1x etoh use since discharge from rehab but continued cocaine use leading to job loss. Comments: None Sexual History Sexually Active No # of partners 0 Sexual Orientation Heterosexual Sexual Concerns: None noted Education History Highest Level of Education: some college, bachelor's degree Highest Grade Completed: Bachelors Degree Vocational Year Completed: N/A Number of College Years: 4 College Degree/Major: Bachelors in Special Ed Other Degree(s): None Preferred Learning Style: visual, auditory, experiential HX of Learning Difficulties: None reported Barriers to Learning: None reported Special Communication Needs: None reported Employment History Employment Unemployed Not in Labor Force: Unemployed and looking for work 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 of Jobs in Last 5 Years: 1 Attendance: Normal Performance: Good Comments: Patient laid off as director of [employer] History Have You Been in The ? No If Yes, Explain: N/A Type of Discharge: N/A Date of Discharge: N/A Current Mental Status Mental Status Orientation: Person, Place, Situation Affect: Depressed Speech: WNL Neuro-vegetative: Anhedonia, Appetite Decreased, Concentration Poor, Energy Decreased, Helpless, Loss of Interest, Sleep Disturbance Appearance Appearance- Dress/Hygiene: hospital scrubs' depressed affect; tearful; poor eye contact Behaviors Thought Process: WNL Thought Content: WNL Memory: WNL Insight: Fair SI/HI Risk Assessment Past Suicidal Ideation/Attempts No Current Suicidal Ideation/Att Yes Past Homicidal Ideation/Att: No Current Homicidal Ideation/Attempts No Degree of Intent: Thoughts/No Intent Danger To: Self Gravely Disabled: Poor Impulse Control, Poor Judgment Lethality Ratin - Conclusion and Recommendations for treatment - and discharge planning Summary: Patient admitted to [facility] for inpatient treatment. Patient to undergo psychiatric evaluation, medication evaluation, group therapy, family meeting and discharge planning with social worker health services.
[2017-07-02 20:03] VITALS: BP 132/67
[2017-07-03 07:54] VITALS: BP 137/68
[2017-07-03 11:56] VITALS: BP 133/59
--- NOTE | 2017-07-03 12:07 | CP SOUTH PROGRESS NOTE PSYCH ---
Psych (Inpt) Progress Note Progress Note Include the following elements, when applicable: Involvement in the active treatment of the patient with behavioral observations of the patient and the patient's response to the treatment. Review of the ongoing treatment process in the context of the treatment plan. Indication of how multi-disciplinary staff members are carrying out the treatment plan. Plans for future interventions and recommendations for revision of the treatment plan. Liaison with other physicians/providers. Progress Note: Stated that she didn't sleep at all last night, received trazodone which may have helped somewhat. Discussed maintaining it as a PRN and taking it a few nights to improve her sleep as she acclimates here, and she agreed. Normally melatonin is sufficient for her. Stated that her mood is improving today, she feels happier, somewhat upset that she missed group and slept through it; said that she has been bonding with some of the people here. Happy with the staff and clientele here. Focused on not being homeless. MSE: overweight woman, fair grooming, using walker. Her eye contact is good and she is well related. Her speech is normal. her thinking is linear and logical, free of delusional materials. Her mood is good and affect is full and reactive. She denies experiencing SI/HI and has no evidence of hallucinations. Her insight is improving and judgment is adequate. A: 56 year old woman with recent onset of suicidal thoughts, anhedonia, withdrawal, in context of recent job loss, homelessness and drug use. She is stabilizing clinically. Her Cr was 2.0 on admission, 1.5 yesterday and 1.0 today. Will increase her metformin back up to her higher dose of 1000mg twice daily. continue current plan of care. No issues with buspar or sertraline.
[2017-07-03 15:34] VITALS: BP 122/67
[2017-07-03 19:41] VITALS: BP 138/65
[2017-07-04 08:04] VITALS: BP 159/75
[2017-07-04 12:02] VITALS: BP 129/65
--- NOTE | 2017-07-04 14:18 | CP SOUTH PROGRESS NOTE PSYCH ---
Psych (Inpt) Progress Note Progress Note I reviewed the covering psychiatrist notes from Tuesday and Tuesday, July 02 and 07/03/2017 Vital Signs Date Time Temp Pulse Resp B/P 07/04 1202 74 129/65 07/04 0842 98.1 70 16 159/75 07/04 0804 98.1 70 159/75 MSE: The patient was alert and oriented to time, place, and person. She was depressed and tearful. She mobilizes using a walker. Her eye contact was good and she is well related. Her speech is normal. Her thinking is linear and logical, free of delusional materials. She reported anxiety and depression at 8 out of 10 (10 being worst) She does feel helpless and hopeless about her situation occasional thoughts of wishing but no thoughts of actively committing suicide, she denied violent thoughts or thoughts of homicide, she denied hallucinations and there was no evidence of hallucinations (she was not responding to internal stimuli and was not internally preoccupied). A: 56 year old woman with recent onset of suicidal thoughts, anhedonia, withdrawal, in context of recent job loss, homelessness and drug use. She is stabilizing clinically. Treatment Plan Update: D/C Buspiron Use PRN Ativan 0.5 mg for anxiety D/C Trazodone PRN Use Lorazepam PRN for insomnia metformin 1000mg twice daily. continue current plan of care. Repeat Kidney Functin in 2 days or so
[2017-07-04 16:10] VITALS: BP 128/68
--- NOTE | 2017-07-04 17:23 | Event Note ---
Event Note Event Note: Called by nursing regarding restarting Valsartan/HCTZ medication. The patient had abnormal Cr on admission (now normal). BP only mildly elevated (still on Amlodipine). Will start Losartan 100 mg daily in morning (this is approximately equivalent to Valsartan dose). Will hold HCTZ component at present and observe BP on Amlodipine and Losartan.
--- NOTE | 2017-07-04 17:58 | SOCIAL WORKER PROG NOTE PSYCH ---
Social Work Progress Note Progress Note This chief underwriter met with patient. Patient stated that her mood is "not very good" today due to not sleeping well last night. She shared that she has been struggling with homelessness and experiences SI with a thought of "why bother." Patient denied having an plan associated with the SI. Patient stated that she has been sober from cocaine and ETOH for the last 4-6 months and was in treatment in [place] in the past. Patient denied any other substance use. Patient denied HI/AH/VH. Despite reporting abstinence, patient stated that she would like to find another inpatient rehab program. She was agreeable to a referral to [facility] and crisis [facility] resp[facility]. Patient stated that she has a primary care provider with [facility].
--- NOTE | 2017-07-04 18:37 | SOCIAL WORKER PROG NOTE PSYCH ---
Social Work Progress Note Progress Note Note created in error. Refer to 07/04/17 note.
[2017-07-04 19:54] VITALS: BP 143/78
[2017-07-05 08:39] VITALS: BP 137/64
--- NOTE | 2017-07-05 11:39 | SOCIAL WORKER PROG NOTE PSYCH ---
Social Work Progress Note Progress Note JERI Martínez ERNESTO [id number] 1960 JERI Martínez ERNESTO [id number] Pended Authorization # Client Authorization # Type of Request [id number] CONCURRENT Date of Admission/ Start of Services Requested From Submission Date 07/02/2017 07/05/2017 07/05/2017
[2017-07-05 11:53] VITALS: BP 127/72
--- NOTE | 2017-07-05 12:40 | CP SOUTH PROGRESS NOTE PSYCH ---
Psych (Inpt) Progress Note Progress Note Vital Signs Date Time Temp Pulse Resp B/P 07/05 1153 75 127/72 07/05 0839 99.0 76 137/64 07/05 0826 98.9 78 16 143/78 The patient's progress, treatment plan, and aftercare plans were discussed in the treatment team meeting this morning. Treatment team included: SWIM COACH, nursing staff, therapy staff, and psychiatrist.Vital Signs Mental Status: The patient reported interrupted sleep last night, and thinks that it may have been late to ask for parents of Ativan when she woke up last night. She mobilizes using a walker. The patient was alert and oriented to time, place, and person. Her mood was was depressed and affect was appropriately tearful. Her speech is normal. Her thinking was linear and logical, free of delusional materials. She reported anxiety and depression with some lingering feelings of helplessness and hopelessness And occasional thoughts of wishing but no thoughts of actively committing suicide, she denied violent thoughts or thoughts of homicide, she denied hallucinations and she was not responding to internal stimuli and was not internally preoccupied. Assessment: Lillian is a 56-year old White woman who was admitted to the inpatient psychiatric unit on 07/02/2017 with recent onset of suicidal thoughts, anhedonia, withdrawal , in context of recent job loss, homelessness and drug use. She seems to be slowly and gradually improving. Treatment Plan Update: May use PRN Ativan 0.5 mg for anxiety as needed Change bedtime Lorazepam from PRN to regular schedule for insomnia Continue metformin 1000mg twice daily. Nicotine patch 21 mg daily Repeat Kidney Functin
[2017-07-05 16:11] VITALS: BP 135/63
--- NOTE | 2017-07-05 16:33 | SOCIAL WORKER PROG NOTE PSYCH ---
Social Work Progress Note Progress Note This bond underwriter met with patient. She described her mood as "ok, but tired as hell " and stated that she had not slept well last night. Patient stated that she discussed this with the psychiatrist and she will be trying a new sleeping medication and feels hopeful about this. Patient stated that she is not agreeable to a family meeting at this time as "it will only bring up things." When asked about SI, patient stated that she has the thought of "why bother." She denied an plan associated with this thought. Patient maintains that she has not used in 4-6 months, however, feels the need for rehab as she continues to experience triggers/urges. Patient stated that she does not have any income. She was agreeable to a referral to [facility], as well as [facility]. This bond underwriter spoke lucero Joseph at [facility] to make a referral. Patient was assigned to Lance Castano with [facility], who will be in contact with this bond underwriter.
[2017-07-05 20:18] VITALS: BP 138/63
[2017-07-06 08:15] VITALS: BP 140/61
--- NOTE | 2017-07-06 11:50 | SOCIAL WORKER PROG NOTE PSYCH ---
Social Work Progress Note Progress Note Completed [facility] referral Faxed to both [facility] and [facility]. Asked Shayy Aponte LCSW to look for Fax confirmations.
[2017-07-06 12:15] VITALS: BP 120/60
--- NOTE | 2017-07-06 14:27 | CP SOUTH PROGRESS NOTE PSYCH ---
Psych (Inpt) Progress Note Progress Note Laboratory Tests 07/06 Sodium (137 - 145 mmol/L) 142 Potassium (3.5 - 5.1 mmol/L) 4.4 Chloride (98 - 107 mmol/L) 101 Carbon Dioxide (22 - 30 mmol/L) 27 Anion Gap (5 - 16) 14 BUN (7 - 17 mg/dL) 18 H Creatinine (0.5 - 1.0 mg/dL) 0.8 Estimated GFR (>60 ml/min) > 60 BUN/Creatinine Ratio (7 - 25 %) 22.5 Vital Signs Date Time Temp Pulse Resp B/P B/P Pulse O2 FiO2 07/06 1215 72 120/60 07/06 0815 98.9 68 16 138/63 07/07 0715 97.4 75 140/61 07/06 0814 98.9 68 16 138/63 07/05 2018 98.9 68 138/63 07/05 1611 64 135/63 The patient's progress, treatment plan, and aftercare plans were discussed in the treatment team meeting this morning. Treatment team included: APARTMENT MAINTENANCE MANAGER, nursing staff, therapy staff, and psychiatrist. The patient can discriminate function normalized with an estimated filtration rate above 60 mL per minute Mental Status: The patient reported that she slept very well last night however she had one incidence of urinary incontinence/enuresis last night, the patient denied burning urine and as above kidney function has stabilized She mobilizes using a walker. The patient was alert and oriented to time, place, and person. The patient reported that her mood is starting to improve, has lingering feelings of helplessness and hopelessness but denied any thoughts of suicide Her speech is normal. Her thinking was linear and logical, free of delusional materials. she denied violent thoughts or thoughts of homicide, she denied hallucinations and she was not responding to internal stimuli and was not internally preoccupied. Assessment: Lillian is a 56-year old White woman who was admitted to the inpatient psychiatric unit on 07/02/2017 with recent onset of suicidal thoughts, anhedonia, withdrawal , in context of recent job loss, homelessness and drug use. She seems to be slowly and gradually improving. She initially came in with the inpatient unit kidney function but that has normalized since and she was relieved and happy about it today. Her main issue remains to be homelessness at this point. Treatment Plan Update: May use PRN Ativan 0.5 mg for anxiety as needed Reduce bedtime Lorazepam because of enuresis last night Continue metformin 1000mg twice daily. Nicotine patch 21 mg daily Repeat Kidney Functin
[2017-07-06 15:57] VITALS: BP 144/80
--- NOTE | 2017-07-06 16:43 | SOCIAL WORKER PROG NOTE PSYCH ---
Social Work Progress Note Progress Note This abstract writer met with patient. She described her mood as "panicky because I need to get somewhere" and identified being homeless as her primary trigger. She denied SI/HI/AH/VH. Patient maintains her interest in rehab as it will provide her with a place to stay. She was provided with numbers for [facility], [facility] and [facility] and will contact them to inquire about their programs. Patient was agreeable to signing an ELIZABETH for her brother, Leif, but requested that this abstract writer wait until tomorrow to contact him in order to provide her with the opportunity to call him tonkatrina if she decides to do so. Patient stated that she may be agreeable to a family meeting with her brother and will follow up with this abstract writer tomorrow with her decision.
[2017-07-06 19:36] VITALS: BP 144/73
[2017-07-07 08:11] VITALS: BP 129/65
[2017-07-07 10:00] VITALS: BP 136/71
[2017-07-07 12:48] VITALS: BP 122/64
--- NOTE | 2017-07-07 13:31 | SOCIAL WORKER PROG NOTE PSYCH ---
Social Work Progress Note Progress Note JERI Martínez ERNESTO [id number] 1960 JERI Martínez ERNESTO [id number] Pended Authorization # Client Authorization # Type of Request [id number] CONCURRENT Date of Admission/ Start of Services Requested From Submission Date 07/02/2017 07/07/2017 07/07/2017
--- NOTE | 2017-07-07 14:56 | CP SOUTH PROGRESS NOTE PSYCH ---
Psych (Inpt) Progress Note Progress Note Vital Signs Vital Signs Date Time Temp Pulse B/P B/P Pulse O2 07/07 1248 67 122/64 07/07 1001 74 136/71 07/07 0811 97.9 74 129/65 The patient's progress, treatment plan, and aftercare plans were discussed in the treatment team meeting this morning. Treatment team included: DEMOGRAPHIC ANALYST, nursing staff, therapy staff, and psychiatrist. Mental Status: The patient was alert and oriented to time, place, and person. The patient reported that she slept well last night She denied urinary incontinence/enuresis last night, She mobilizes using a walker but she said that she uses a cane at home and she would be stable with a cane if it was allowed on the unit. The patient reported that her mood continues to improve, has lingering feelings of helplessness and hopelessness but denied any thoughts of suicide Her speech was normal. Her thinking was linear and logical, she was free of delusional materials. she denied violent thoughts or thoughts of homicide, she denied hallucinations and she was not responding to internal stimuli and was not internally preoccupied. Assessment: Lillian is a 56-year old White woman who was admitted to the inpatient psychiatric unit on 07/02/2017 with recent onset of suicidal thoughts, anhedonia, withdrawal , in context of recent job loss, homelessness and drug use. She seems to be slowly and gradually improving. She initially came in with the inpatient unit kidney function but that has normalized since and she was relieved and happy about it today. Treatment Plan Update: May use PRN Ativan 0.5 mg for anxiety as needed Reduce bedtime Lorazepam to 0.5 mg tonight and will likely start it tomorrow I added when necessary's of gabapentin in case she experiences resurfacing of anxiety or insomnia with the reduction in Ativan Continue metformin 1000mg twice daily. Nicotine patch 21 mg daily
[2017-07-07 15:59] VITALS: BP 137/75
--- NOTE | 2017-07-07 17:38 | SOCIAL WORKER PROG NOTE PSYCH ---
Social Work Progress Note Progress Note This fiction and nonfiction writer prose completed a phone screening with Dorinda at [facility] and [facility]. She was accepted and bed could be held until tomorrow. Patient refused the bed as she was not willing to go to a penitentiary should other arrangements not be available after the 10-14 day stay. Dorinda was informed of this decision. Dr. Dos Santos was informed. This fiction and nonfiction writer prose met with patient. She stated that she did not call her friends or brother last night as she had planned to do and was unable to identify a barrier to making the call. She agreed to call [facility] and stated that she would call with this fiction and nonfiction writer prose tomorrow if unable to call [facility]. Patient stated that she also plans to call a friend that can retrieve her belongings from the [facility]. Patient stated that she was feeling "hungover" from her sleeping medications and discussed this with the psychiatrist. Patient denied SI, however reported feeling hopeless and depressed. She denied HI/AH/VH.
[2017-07-07 19:38] VITALS: BP 141/71
[2017-07-08 08:14] VITALS: BP 137/71
--- NOTE | 2017-07-08 09:11 | CP SOUTH PROGRESS NOTE PSYCH ---
Psych (Inpt) Progress Note Progress Note The patient's progress, treatment plan, and aftercare plans were discussed in the treatment team meeting this morning. Treatment team included: BUSINESS PROCESS ASSOCIATE, nursing staff, therapy staff, and psychiatrist. Vital Signs Date Time Temp Pulse Resp B/P 07/08 0814 98.1 80 16 141/71 Mental Status: Pt. reported that she slept well last night & denied urinary incontinence/ enuresis last night. She mobilizes using a walker (uses a cane at home and she would be stable with a cane if it was allowed on the unit). The patient was alert and oriented to time, place, and person. Pt. reported that her mood continues to improve (although she still reports lingering feelings of helplessness and hopelessness). She denied any thoughts of suicide Her speech was normal and her thinking was linear and logical, she was free of delusional thoughts. Pt. denied violent thoughts or thoughts of homicide, denied hallucinations and she was not responding to internal stimuli and was not internally preoccupied. Assessment: Lillian is a 56-year old single White female who was admitted 07/02/2017 with recent onset of suicidal thoughts in the context of job loss, homelessness and drug use. She seems to be slowly and gradually improving. Treatment Plan Update: D/C PRN Ativan and D/C bedtime Ativan 0.5 mg Continue PRN gabapentin but increase frequency to Q4 hours PRN for anxiety or insomnia Continue metformin 1000mg twice daily. Nicotine patch 21 mg daily D/C PRN Ativan and D/C bedtime 0.5 mg Continue PRN gabapentin but increase frequency to Q4 hours PRN Continue metformin 1000mg twice daily. Nicotine patch 21 mg daily
[2017-07-08 12:17] VITALS: BP 117/54
[2017-07-08 16:07] VITALS: BP 130/68
--- NOTE | 2017-07-08 16:30 | SOCIAL WORKER PROG NOTE PSYCH ---
Social Work Progress Note Progress Note This remote mortgage underwriter spoke with Lance from [facility] by phone ([phone]). He was informed of patients resistance to going to a correction and that she decided not to accept the [facility] bed that was offered yesterday. Lance stated that he would come to meet with her around 11am today. This remote mortgage underwriter met with patient. She was informed that Lance would meet with her today and appeared to look forward to learning about services that [facility] can offer. Patient stated that she spoke with her friend briefly, however, she would not be available until Tuesday. Patient stated that she would call her friend on Tuesday. She stated that she has not called her brother yet and was agreeable to this remote mortgage underwriter calling him. Patient denied SI. She continues to report hopelessness and depression; she was tearful during this meeting. Patient stated that she slept well. Patient was encouraged to attend groups and avoid isolation. Later in the afternoon patient was invited to call her brother with this remote mortgage underwriter. She agreed. He stated that he was aware that she had been hospitalized through "word of mouth." This remote mortgage underwriter inquired about scheduling a family meeting. Patient's brother was agreeable to a family meeting and this remote mortgage underwriter will contact him on Tuesday to schedule a time. He will need to attend by phone due to work. Patient's brother asked if he could visit this weekend, and patient agreed. Following the phone call, patient discussed feeling relief and thanked this remote mortgage underwriter for the support and encouragement.
[2017-07-08 19:41] VITALS: BP 131/54
[2017-07-09 08:24] VITALS: BP 130/64
[2017-07-09 12:25] VITALS: BP 114/68
--- NOTE | 2017-07-09 14:57 | CP SOUTH PROGRESS NOTE PSYCH ---
Psych (Inpt) Progress Note Progress Note Include the following elements, when applicable: Involvement in the active treatment of the patient with behavioral observations of the patient and the patient's response to the treatment. Review of the ongoing treatment process in the context of the treatment plan. Indication of how multi-disciplinary staff members are carrying out the treatment plan. Plans for future interventions and recommendations for revision of the treatment plan. Liaison with other physicians/providers. Progress Note: The patient is a 56-year-old white woman who was admitted on 07/02/17. She carries the diagnosis unspecified depression. Current medication list reviewed. Case discussed with nurse. Nurse reports that the patient is denying suicidal ideation. Homeless. Chronically depressed. Patient seen at 12 noon. She was resting in bed but got up and met with me in office. She is using a walker. She is dressed in a blue paper scrub top and sweatpants. States that today she is tired so she has been sleeping a lot. She has had middle of the night awakenings every 2 hours to use the bathroom. She appears awake and alert, calm and euthymic. Reports mood as "dealing with it, dealing with a lot of stressors, not used to. Reports she lost her job and has no money and it has all been blamed on cocaine. Rates sad mood and anxiety . Feels hopeless and helpless because she does not know the first steps to take. Feels worthless. Feels guilty that she should have seen this coming. Denies having suicidal thoughts now. Denies homicidal ideation. Denies auditory and visual hallucinations and paranoid ideation. Reports appetite here is not too bad. Energy: states she could sleep at any moment but states she is not able to sleep too well here because of noise. Tolerating current medications well. Patient anticipates discharge on to [facility] or [place]. IMPRESSION: Slow progress. Continue present treatment plan.
[2017-07-09 15:58] VITALS: BP 150/76
[2017-07-09 19:50] VITALS: BP 138/61
[2017-07-10 12:28] VITALS: BP 130/62
--- NOTE | 2017-07-10 15:37 | CP SOUTH PROGRESS NOTE PSYCH ---
Psych (Inpt) Progress Note Progress Note Include the following elements, when applicable: Involvement in the active treatment of the patient with behavioral observations of the patient and the patient's response to the treatment. Review of the ongoing treatment process in the context of the treatment plan. Indication of how multi-disciplinary staff members are carrying out the treatment plan. Plans for future interventions and recommendations for revision of the treatment plan. Liaison with other physicians/providers. Progress Note: Case discussed with nurse. Staff reports that the patient is doing okay. Vital signs are stable. Denying pain. Denying suicidal ideation. Patient was asleep in her room at 10:36 AM but got up and met with me in office. Patient seen at 10:43 AM. States she did not slept all night. Appears awake and alert. Affect is calm and euthymic. Would like to restart trazodone prn and I ordered this. Reports mood as "I'm crabby today because I didn't sleep at all last night. Didn't sleep the night before either." Rates sad mood 0/10 and anxiety about 10/10 because she is upset because she cannot sleep. Denies feeling hopeless. Feels helpless. Denies feeling worthless but states she is kind of struggling with that. Denies feeling guilty. Denies suicidal and homicidal ideation. Denies auditory and visual hallucinations and paranoid ideation. Reports appetite is fine. Reports energy is zero, none. Tolerating medications well, without complaint. IMPRESSION: Slow progress. Continue present treatment plan.
[2017-07-10 16:01] VITALS: BP 119/54
[2017-07-10 19:49] VITALS: BP 131/68
[2017-07-11 07:54] VITALS: BP 140/51
[2017-07-11 12:07] VITALS: BP 112/57
--- NOTE | 2017-07-11 16:10 | SOCIAL WORKER PROG NOTE PSYCH ---
Social Work Progress Note Progress Note The services requested require additional review. You will be contacted regarding the status of this request if further information is needed. An authorization decision will be made within the required timeframes and details of that decision may be found under the member's authorization history. Member Name Member ID Member Subscriber Name Subscriber ID JERI OROZCO [id number] 1960 JERI OROZCO [id number] Pended Authorization # Client Authorization # Type of Request [id number] CONCURRENT Date of Admission/ Start of Services Requested From Submission Date 07/02/2017 07/11/2017 07/11/2017 Level of Service Type of Service Level of Care Type of Care INPATIENT/HLOC Mental Health Inpatient [facility]patient [facility] - Inpatient Hospital Reason Code P77 Provider Name & Address Provider ID Provider Alternate ID NPI # for Authorization ELLIOTT FREITAS [id number] N/A [address] [facility] [id number]
[2017-07-11 16:12] VITALS: BP 111/54
--- NOTE | 2017-07-11 16:26 | SOCIAL WORKER PROG NOTE PSYCH ---
Social Work Progress Note Progress Note This life underwriter met with patient. She described her mood as "blue" and stated that she felt "hung over" and was experiencing vertigo. Patient stated that she spoke with Lance Porter APRN about this. Patient presented as tearful and stated that she felt weepy. She denied SI/HI/AH/VH. PAtient stated that she visited with her brother yesterday and had a good visit. She stated that she has not yet identified a place to stay upon discharge and felt "big time hopeless." Patient was agreeable to scheduling a family meeting with her brother by phone tomorrow (a voicemail was left for her brother, Leif, in interest of scheduling this meeting). Patient signed [facility] for rehabs and referrals will be made today. This life underwriter spoke with [facility] [place] (Leela) and a screening will be conducted by phone tomorrow.
--- NOTE | 2017-07-11 16:36 | CP SOUTH PROGRESS NOTE PSYCH ---
Psych (Inpt) Progress Note Progress Note Include the following elements, when applicable: Involvement in the active treatment of the patient with behavioral observations of the patient and the patient's response to the treatment. Review of the ongoing treatment process in the context of the treatment plan. Indication of how multi-disciplinary staff members are carrying out the treatment plan. Plans for future interventions and recommendations for revision of the treatment plan. Liaison with other physicians/providers. Progress Note: I discussed this patient's progress to date, current mental status, treatment process in the context of the treatment plan, and discharge planning with staff/ team in the daily morning inpatient team meeting. I also met with the patient myself in individual session. A total of 25 minutes was spent with the patient with more than 50% spent in counseling and/or coordination of care. SUBJECTIVE: "I sometimes have cravings for cocaine. I had like to go to rehab. AA would also be goood." OBJECTIVE: Current Medications Sig/Gina Start time Last Medication Dose Route Stop Time Status Admin Acetaminophen 650 MG Q4P PRN 07/01 2030 AC 07/10 PO 1051 Al Hydroxide/Mg 30 ML Q4-6 PRN PRN 07/04 1500 AC Hydroxide PO Amlodipine Besylate 10 MG DAILY 07/03 0900 AC 07/11 PO 0843 Aspirin Buffered 81 MG DAILY 07/02 0900 AC 07/11 PO 0842 Atorvastatin Calcium 80 MG 07/03 0900 AC 07/11 PO 0842 Gabapentin 400 MG Q4 HRS NEEDED PRN 07/08 1215 AC PO Losartan Potassium 100 MG DAILY 07/05 09 AC 07/11 PO 0842 Magnesium Hydroxide 30 ML AT BEDTIME PRN 07/04 1500 AC PO Meclizine HCl 25 MG TID PRN 07/02 1445 AC 07/11 PO 1446 Melatonin 10 MG AT BEDTIME 07/01 2100 AC 07/10 PO 2113 Metformin HCl 1,000 MG 0800,1700 07/03 1700 AC 07/11 PO 0842 Nicotine 21 MG 07/06 0800 AC 07/09 TOP 0833 Nicotine 2 MG Q2 HRS NEEDED PRN 07/02 1530 AC PO Sertraline HCl 100 MG 07/06 0800 AC 07/11 PO 0842 Trazodone HCl 50 MG AT BEDTIME NEED.. 07/10 1045 AC 07/10 PO 2114 Vital Signs Date Time Temp Pulse Resp B/P B/P Pulse O2 O2 Flow FiO2 Mean Ox Delivery Rate 07/11 1612 66 111/54 07/11 1207 67 112/57 07/11 0843 70 140/51 07/11 0842 70 140/51 07/11 0754 98.4 70 140/51 07/10 1949 97.8 65 131/68 ASSESSMENT: Patient presented as calm, cooperative and pleasant. Reports continuing depression and anxiety. Ambulates with steady gait, with assist of a walker. She reports some dizziness, after a recent bout of vertigo. She is aware that she may request a prn dose of meclizine. Depression:/10; Anxiety:8/ (with 10 the worst.) Denies suicidal ideation, homicidal ideation, auditory hallucinations, visual hallucinations, paranoid ideation. Patient states and also believes that she will not kill herself. States that her protective factors are her nieces and nephews, also "I would not have the balls to do it." Nevertheless she sometimes feels "why bother?" Patient denies plan or intent to harm herself. She reports some difficulty staying asleep, although she falls asleep with trazodone. Her appetite and concentration are reported to be fine. Speech is well articulated, goal-directed, average in rate, volume and tone. The patient understands the risks/benefits/side effects of the medication and is agreeable to continue taking them. PLAN: Social work is trying to help her get into residential rehab. Continue with current management as patient is improving. Continue to provide support and encouragement.
--- NOTE | 2017-07-11 18:10 | SOCIAL WORKER PROG NOTE PSYCH ---
Social Work Progress Note Progress Note Faxed Clinical to: [facility] - Fax confirm recieved [facility] - Fax confirm received [facility] - Fax confirm received [facility] - Fax confirm received [facility] - waiting for Fax confirm - check SW fax [facility] -=waiting for Fax confirm - check SW fax
--- NOTE | 2017-07-11 18:42 | SOCIAL WORKER PROG NOTE PSYCH ---
Social Work Progress Note Progress Note Met with Lillian to obtain amount and frequency of drug/alcohol use. Alcohol - Reports drinking 10-20 mixed drinks - weekly (4x per week) usually Thurs, Fri, Sat, Sun. She began drinking at 17yrs old. Cocaine - reports 1st use 22yrs old, last use about 1 week [employer]EVER[employer]. Was using 4 grams daily ($160 daily) x past 30yrs. She did state in beginning of use was using less 1/4 gram cocaine (snorting) 4x week then it escalated.
[2017-07-11 20:07] VITALS: BP 134/61
[2017-07-12 08:17] VITALS: BP 136/71
[2017-07-12 12:28] VITALS: BP 109/61
--- NOTE | 2017-07-12 12:42 | CP SOUTH PROGRESS NOTE PSYCH ---
Psych (Inpt) Progress Note Progress Note Include the following elements, when applicable: Involvement in the active treatment of the patient with behavioral observations of the patient and the patient's response to the treatment. Review of the ongoing treatment process in the context of the treatment plan. Indication of how multi-disciplinary staff members are carrying out the treatment plan. Plans for future interventions and recommendations for revision of the treatment plan. Liaison with other physicians/providers. Progress Note: I discussed this patient's progress to date, current mental status, treatment process in the context of the treatment plan, and discharge planning with staff/ team in the daily morning inpatient team meeting. I also met with the patient myself in individual session. A total of 25 minutes was spent with the patient with more than 50% spent in counseling and/or coordination of care. SUBJECTIVE: "I am not clinically depressed." OBJECTIVE: Current Medications Sig/Gina Start time Last Medication Dose Route Stop Time Status Admin Acetaminophen 650 MG Q4P PRN 07/01 2030 AC 07/12 PO 1127 Al Hydroxide/Mg 30 ML Q4-6 PRN PRN 07/04 1500 AC Hydroxide PO Amlodipine Besylate 10 MG DAILY 07/03 0900 AC 07/12 PO 0921 Aspirin Buffered 81 MG DAILY 07/02 0900 AC 07/12 PO 0921 Atorvastatin Calcium 80 MG 07/03 09 AC 07/12 PO 0921 Gabapentin 400 MG Q4 HRS NEEDED PRN 07/08 1215 AC 07/11 PO 2120 Losartan Potassium 100 MG DAILY 07/05 09 AC 07/12 PO 0921 Magnesium Hydroxide 30 ML AT BEDTIME PRN 07/04 1500 AC PO Meclizine HCl 25 MG TID PRN 07/02 1445 AC 07/11 PO 1446 Melatonin 10 MG AT BEDTIME 07/01 2100 AC 07/11 PO 2120 Metformin HCl 1,000 MG 0800,1700 07/03 1700 AC 07/12 PO 0920 Nicotine 21 MG 07/06 0800 AC 07/09 TOP 0833 Nicotine 2 MG Q2 HRS NEEDED PRN 07/02 1530 AC PO Sertraline HCl 100 MG 07/06 0800 AC 07/12 PO 0920 Trazodone HCl 50 MG AT BEDTIME NEED.. 07/10 1045 AC 07/11 PO 2120 Vital Signs Date Time Temp Pulse Resp B/P B/P Pulse O2 O2 Flow FiO2 Mean Ox Delivery Rate 05/08 1228 70 109/61 07/12 1203 98.5 07/12 1127 98.5 / 0921 98.5 75 16 136/71 07/12 0821 98.5 75 16 136/71 07/12 0817 98.5 75 136/71 07/11 2006 99.2 71 134/61 07/11 1612 66 111/54 ASSESSMENT: I met the patient today along with social science professor Leela Grubbs Patient denies depression or anxiety, states that she slept well last night, however feeling groggy this morning. She presents as calm and cooperative. Sad and hopeless affect. We discussed discharge planning for her, and explained the importance that she make phone calls to the referrals which social work is giving her, which she has been reluctant to do. States that she is having a hard time concentrating, and does not feel that she is ready to leave the hospital at this time. She ambulates with assist of walker, uses a cane at home. She reports tolerating her medications, to good effect. Depression:0/10; Anxiety:0/10 (with 10 the worst.) Denies suicidal ideation, homicidal ideation, auditory hallucinations, visual hallucinations, paranoid ideation. Speech is well articulated, goal-directed, average in rate, volume and tone. The patient understands the risks/benefits/side effects of the medication and is agreeable to continue taking them. PLAN: Social work is working on her discharge plan and referrals. Anticipate discharge either later today or tomorrow. Continue with current management as patient is improving. Continue to provide support and encouragement.
[2017-07-12 15:54] VITALS: BP 120/61
--- NOTE | 2017-07-12 15:58 | SOCIAL WORKER PROG NOTE PSYCH ---
Social Work Progress Note Progress Note JERI Martínez ERNESTO [id number] 1960 JERI Martínez ERNESTO [id number] Pended Authorization # Client Authorization # Type of Request [id number] CONCURRENT Date of Admission/ Start of Services Requested From Submission Date 07/02/2017 07/12/2017 07/12/2017
--- NOTE | 2017-07-12 18:21 | SOCIAL WORKER PROG NOTE PSYCH ---
Social Work Progress Note Progress Note This service writer and Lance Porter APRN met with patient. She reported that she slept well, though feels overmedicated this morning. She stated, "I'm not clinically depressed." She denied having any anxiety or depression and denied SI/HI/AVH. Lance address medication questions and concerns. Patient was informed that this service writer would be conducting a phone screening with [facility] today and if a bed is available she would be discharged. Patient became anxious stating that she is not ready to discharge. She stated that she had not yet called inpatient rehabs and would do so today. It is unclear what her reason is for delaying these calls. This service writer spoke with Deja at [facility] for the phone screening. She stated that she would contact this service writer later this afternoon when she will know if a bed is available. This service writer spoke with Leela in the afternoon who stated that a bed is not available and they do not know when one would be. This was relayed to Lance and the patient. Patient stated that she would call rehab programs as well as family/friends to inquire about temporary living arrangements. This service writer attempted to reach patient's brother, Ace, by phone ([phone]) to follow up on the previous vm. A vm was left with call back number.
[2017-07-12 20:06] VITALS: BP 134/68
[2017-07-13 09:03] VITALS: BP 148/75
--- NOTE | 2017-07-13 11:25 | CP SOUTH PROGRESS NOTE PSYCH ---
Psych (Inpt) Progress Note Progress Note Include the following elements, when applicable: Involvement in the active treatment of the patient with behavioral observations of the patient and the patient's response to the treatment. Review of the ongoing treatment process in the context of the treatment plan. Indication of how multi-disciplinary staff members are carrying out the treatment plan. Plans for future interventions and recommendations for revision of the treatment plan. Liaison with other physicians/providers. Progress Note: I discussed this patient's progress to date, current mental status, treatment process in the context of the treatment plan, and discharge planning with staff/ team in the daily morning inpatient team meeting. I also met with the patient myself in individual session. A total of 15 minutes was spent with the patient with more than 50% spent in counseling and/or coordination of care. SUBJECTIVE: "I slept well last night on the cocktail, and I am not tired this morning." OBJECTIVE: Current Medications Sig/Gina Start time Last Medication Dose Route Stop Time Status Admin Acetaminophen 650 MG .STK-MED ONE 07/12 1126 DC PO 07/12 112 Acetaminophen 650 MG Q4P PRN 07/01 2030 AC 07/12 PO 1127 Al Hydroxide/Mg 30 ML Q4-6 PRN PRN 07/04 1500 AC Hydroxide PO Amlodipine Besylate 10 MG DAILY 07/03 09 AC 07/13 PO 0813 Aspirin Buffered 81 MG DAILY 07/02 09 AC 07/13 PO 0813 Atorvastatin Calcium 80 MG 07/03 0900 AC 07/13 PO 0813 Gabapentin 400 MG Q4 HRS NEEDED PRN 07/08 1215 AC 07/11 PO 2120 Losartan Potassium 100 MG DAILY 07/05 09 AC 07/13 PO 0813 Magnesium Hydroxide 30 ML AT BEDTIME PRN 07/04 1500 AC PO Meclizine HCl 25 MG TID PRN 07/02 1445 AC 07/11 PO 1446 Melatonin 10 MG AT BEDTIME 07/01 2100 AC 07/12 PO 2136 Metformin HCl 1,000 MG 799,1700 07/03 1700 AC 07/13 PO 0813 Nicotine 21 MG 07/06 0800 AC 07/09 TOP 0833 Nicotine 2 MG Q2 HRS NEEDED PRN 07/02 1530 AC PO Sertraline HCl 150 MG 07/14 0900 UNVr PO Sertraline HCl 50 MG ONCE ONE 05/09 1130 UNVr PO 07/13 1131 Sertraline HCl 100 MG 0800 07/06 0800 DC 07/13 PO 812 Trazodone HCl 50 MG .STK-MED ONE 07/13 2135 DC PO 07/12 2136 Trazodone HCl 50 MG AT BEDTIME NEED.. 07/10 1045 AC 07/12 PO 2135 Vital Signs Date Time Temp Pulse Resp B/P B/P Pulse O2 O2 Flow FiO2 Mean Ox Delivery Rate 07/13 902 97.7 71 148/75 07/13 812 98.7 72 16 134/68 07/13 812 98.7 72 16 134/68 07/12 2006 98.7 72 134/68 07/12 1554 78 120/61 07/12 1228 70 109/61 07/12 1203 98.5 07/12 1127 98.5 ASSESSMENT: Patient reports sleeping well last night, awakening this morning feeling refreshed, and not groggy as she had complained about in the past. She had taken 50 mg of trazodone, 10 mg of melatonin last night, which seemed to be a good "cocktail." She complains of ongoing depression and anxiety "because I have nowhere to go." States that if she is not found to bed somewhere after hospital discharge, she will end up sleeping "on a bench." She denies suicidal ideation, however states that "I often wonder why continue. " Patient states and also believes that she will not kill herself. Denies suicidal ideation, homicidal ideation, auditory hallucinations, visual hallucinations, paranoid ideation. States that her appetite is fine. Speech is well articulated, goal-directed, average in rate, volume and tone. The patient understands the risks/benefits/side effects of the medication and is agreeable to continue taking them. PLAN: 1. Patient has been making phone calls as directed by social work to search for appropriate discharge plan. [facility] clinician will be here at 1pm to meet with patient. [facility] telephone screening at 11:30am. 2. Sertraline 50 mg was started on July 02, 2017, then increased to 100 mg on July 06, 2017. At this time patient agrees to increase sertraline to 150 mg for continuing depression and anxiety. 3. Anticipate discharge tomorrow. Continue with current management as patient is improving. Continue to provide support and encouragement.
[2017-07-13 12:22] VITALS: BP 134/66
[2017-07-13] MEDS ORDERED: TRAZODONE HCL50 M1 PO (13:21)
[2017-07-13] MEDS ORDERED: SERTRALINE HCL50 MG PO (13:21)
[2017-07-13] MEDS ORDERED: COZAAR100 M1 PO (13:21)
[2017-07-13] MEDS ORDERED: MELATONIN5 M7 PO (13:21)
[2017-07-13] MEDS ORDERED: METFORMIN HCL1000 M1 PO (13:21)
[2017-07-13] MEDS ORDERED: AMLODIPINE BESY10 M1 PO (13:21)
[2017-07-13] MEDS ORDERED: NICORELIEF2 MG PO (13:21)
[2017-07-13] MEDS ORDERED: ATORVASTATIN CA80 M1 PO ×2 (13:21→14:51)
[2017-07-13] MEDS ORDERED: ASPIRIN81 M4 PO (13:21)
--- NOTE | 2017-07-13 13:27 | Patient Discharge Instructions ---
Psych Discharge Inst General Discharge Information Reason for Admission: suicidal thinking, anhedonia, poor sleep energy and appetite Psy Discharge Primary Diag+ Unspecified depression Psy Discharge Secondary Diag+ Cocaine use d/o, alchol use disorder, HTN, DM, Hx of CVA. Summary Tests/Major Procedures Lab BUN 18 mg/dL H 07/06/17 0658 BUN/Creatinine Ratio 22.5 % 07/06/17 0658 Creatinine 0.8 mg/dL 07/06/17 0658 Estimated GFR > 60 ml/min 07/06/17 0658 Studies Pending at DC: None Patient Instructions Contact Information Your Psychiatrist on [facility] was Tiffanie GRAHAM,Elliott * If you are experiencing an emergency related to this hospitalization, please call [phone] to contact the treating psychiatrist or the psychiatrist-on- call. * To Request a copy of your medical records, please contact the Medical Records Department at [phone]. * To request results of studies pending at the time of discharge, please call [phone]. * Continue your Medications until directed to stop by your Healthcare provider. General Medication Information Please continue to take your new medications and your continued home medications , unless otherwise indicated on your discharge medication list, or unless directed by your MD or CRYSTAL GRINDER to stop them. Special Instructions Diet Diabetic Activity Normal Other Inst/Recommendations Take medications as directed. Maintain sobriety. - Tobacco Use Treatment Offered Post DC Medications Offered: Script Given-See Med List Post DC Tobacco Treatment Plan: [facility] Tobacco Tx Pgm Program Appt Date: 07/20/17 Program Appt Time: 1600 - EtOH/Drug Use D/O Treatment Offered Post DC Medications Offered: Med Not Indicated for D/O Post DC EtOH/SubAbuse TX Plan: Other SubAbuse/Dual Pgm Program Appt Date: 07/14/17 Program Appt Time: 0830 Metabolic Screening ([x]) Not Applicable, patient not on a neuroleptic. OR () Patient on a neuroleptic(s) . Enter below results for Hemoglobin A1C, and lipid panel if obtained during the last 365 days. BMI: 35.500 Blood Pressure: 134/66 Laboratory Results From [facility] (If applicable): Advance Directives Does the Patient have Medical Advance Directives No/Refused further info Does Pt have Psychiatric Advance Directives? No/Refused further info Does Patient have a Designated Surrogate Decision Maker: No Information About Psychiatric Advance Directives Provided? Refused Discharge Plan Post Hospital Treatment Plan: Maintain sobriety. Take medications as directed.
--- NOTE | 2017-07-13 15:51 | DISCHARGE SUMMARY REPORT-PSYCH ---
Visit Information Visit Dates/Diagnosis' Admission Date: 07/02/17 Discharge Date: 07/13/17 Reason for Admission: suicidal thinking, anhedonia, poor sleep energy and appetite Psy Discharge Primary Diag: Unspecified depression Psy Discharge Secondary Diag: Cocaine use d/o, alchol use disorder, HTN, DM, Hx of CVA. Hospital Course Course Allergies: Coded Allergies: ciprofloxacin (Severe, ANAPHYLAXIS 06/20/17) apple (TONGUE THICKENS AND ITCHES 07/01/17) hazelnut (TONGUE THICKENS AND ITCHES 07/01/17) Discharge HBIPS - Tobacco Use Treatment Offered - EtOH/Drug Use D/O Treatment Offered Metabolic Screening - Screen if on a Neuroleptic Medication - Metabolic screening should include: - Blood Pressure, BMI, Glucose or Hgb A1c, & a - Lipid profile from within the past 365 days. Discharge Instructions General Discharge Information Discharge Diet Diabetic Discharge Activity Normal Referrals Ordered Referrals Provider Referral 07/13/17 For Providers: [[facility]] For Groups: [facility] [address] [place] [address] Patient will be transported to this address by [facility] on 07/13/17. Provider Referral 07/20/17 For Providers: [[facility]] For Groups: [[facility]] [facility] [address] [phone] Group meets every other Tuesday at 4pm Next group: 07/20/17, at 4pm Provider Referral For Groups: [Resources] Resources: [facility] - [phone], option 5 [facility] - [phone] [place] - [phone] [facility] - [phone] [facility] - [phone] [facility] - [phone] Provider Referral For Groups: [[facility]] [facility] [address] [place] [address] [phone] A referral has been submitted. Patient will be contacted with an intake appointment. Provider Referral For Groups: [[facility]] [facility] Favio Lucas [phone] Provider Referral 07/14/17 For Groups: [[facility]] [facility] [address] [place], [place] [phone] Walk in hours to engage in dual IOP: Tuesday-Tuesday 8:30am-11am Patient will utilize these walk in hours on 07/14/17 and will also speak with the clinician about medication management. Prescriptions Continue taking these medications: Valsartan/Hydrochlorothiazide (Valsartan-Hctz 320-25 MG Tab) 320 MG-25 MG TABLET 1 Tablet ORAL DAILY Comments: NOT GIVEN THIS ADMISSION Meclizine HCl (Meclizine HCl) 25 MG TABLET 1 Tablet ORAL THREE TIMES A DAY NEEDED Qty = 30 Comments: Last Taken:07/11/17 Time:1446 Ondansetron (Zofran Odt) 4 MG TAB.RAPDIS 1 Tablet SUBLINGUAL THREE TIMES DAILY as needed for nausea Qty = 10 Comments: Last Taken:NOT TAKING IN HOSPITAL Time: Amlodipine Besylate (Amlodipine Besylate) 10 MG TABLET 1 Tablet ORAL DAILY Qty = 14 Comments: Last Taken:07/13/17 Time:812 This prescription has been renewed Aspirin (Aspirin*) 81 MG TAB.CHEW 81 Milligram ORAL DAILY Qty = 30 Instructions: . Comments: Last Taken:07/13/17 Time:08 This prescription has been renewed Start taking the following new medications: Nicotine (Nicorelief) 2 MG GUM 1 Gum ORAL EVERY 2 HOURS NEEDED as needed for NICOTINE CRAVINGS Qty = 30 No Refills Comments: Last Taken:NOT TAKING IN HOSPITAL Time: Losartan (Cozaar) 100 MG TABLET 100 Milligram ORAL DAILY Qty = 14 No Refills Comments: Last Taken:07/13/17 Time:08 Sertraline HCl (Sertraline HCl) 50 MG TABLET 3 Tablet ORAL 0900 Qty = 42 No Refills Instructions: 150MG DAILY. Comments: Last Taken: 07/13/17 Time: 100MG @ 0813 AND 50MG @1227 Trazodone HCl (Trazodone HCl) 50 MG TABLET 50 Milligram ORAL AT BEDTIME as needed for INSOMNIA Qty = 14 No Refills Comments: Last Taken:07/12/17 Time:213 Metformin HCl (Metformin HCl) 1,000 MG TABLET 1,000 Milligram ORAL 0800,1700 Qty = 28 No Refills Comments: Last Taken:07/13/17 Time:08 Melatonin (Melatonin) 5 MG TABLET 2 Tablet ORAL AT BEDTIME Qty = 28 No Refills Comments: Last Taken:07/12/17 Time:2135 Atorvastatin Calcium (Atorvastatin Calcium) 80 MG TABLET 1 Tablet ORAL 0900 Qty = 14 No Refills Comments: Last Taken:07/13/17 Time:812 The following medications have been changed: Old: Atorvastatin Calcium (Atorvastatin Calcium) 80 MG TABLET 80 Milligram ORAL 5 PM Qty = 30 New: Atorvastatin Calcium (Atorvastatin Calcium) 80 MG TABLET 1 Milligram ORAL 5 PM Qty = 30 Instructions: . Comments: Last Taken:07/13/17 Time:812 Other Inst/Recommendations Take medications as directed. Maintain sobriety. Studies Pending at Discharge None
[2017-07-13 15:52] VITALS: BP 101/68
[2017-07-13] MEDS ORDERED: VALSARTAN-HCTZ1 EAC3 PO (16:28)
--- NOTE | 2017-07-13 18:00 | SOCIAL WORKER PROG NOTE PSYCH ---
See Addendum Social Work Progress Note Progress Note This designer/writer met with patient. She was agreeable to Lance from [facility] will be coming down to meet with her at 1pm today. Patient was also agreeable to completing a phone screening at 11:30am today with the [facility] inpatient program, which she did. Patient reported that she slept better last night than the night before. She reported a good mood and denied SI/HI/AH/VH. She was agreeable to discharging tomorrow unless a bed became available today. She was informed that this designer/writer would contact both [facility] locations to inquire about bed availability. [facility] at [facility] did not have any available beds. Upon calling the [facility] location and speaking with Linette, this designer/writer learned that they would be willing to accept the patient today. They would not hold the bed until tomorrow. Patient was informed and accepted the [facility] bed. Per Linette's inquiry, patient stated that she would be able to use the stairs without difficulty at their facility. She stated that she has a CAN assessment scheduled with Joey Marion in [facility] tomorrow between 10am and 1pm. This was relayed to Linette at [facility]. She stated that she met with Lance and will continue to work with him beyond discharge. Patient expressed some anxiety about discharging today, but felt ready to do so. This designer/writer and patient discussed strategies to manage her anxiety. She stated that she will continue to call inpatient/rehab programs to inquire about bed availability. Patient was agreeable to a referral to [facility]. Upon faxing their referral form, this designer/writer contacted [facility] ([phone]) and was informed that they do not provide medication management and only groups. This designer/writer was transferred to the admissions voicemail and left a message with call back number. Therefore, patient was provided with the walk in hours and address for [facility], [address], where, per the main number ), patient may utilize to complete an intake and begin IOP as well as medication management. Patient was agreeable to doing so. Patient identified a safety plan to "call 911," speak with staff at [facility], call a friend and utilize crisis numbers and warm lines provided upon discharge. [place] was scheduled for the patient by Nathan Barry (ref # [id number]). This designer/writer contacted Dorinda at [facility] to inform that the ride was scheduled. Answers to questions 1-4 on the W10 were provided. Faxed Referral(s) Referred To: [facility] Transition of Care Documents sent: Health Summary, W10, consolidated med reconciliation (3 pages) ; med reconciliation (2 pages) Faxed to: [facility] Fax #: [phone] Faxed by: Edwin SCHMIDTW Date faxed: 07/13/17 Time Faxed: [phone]
--- NOTE | 2017-07-14 11:41 | SOCIAL WORKER PROG NOTE PSYCH ---
Social Work Progress Note Progress Note Determination Status: DISCHARGE COMPLETED Thank you. You have completed your discharge for this episode of care. Member Name Member ID Member Subscriber Name Subscriber ID JERI OROZCO [id number] JERI Ag DEPEFRA [id number] Related Authorization # Related Client Authorization # Discharge # Discharge Date [id number] 07/14/2017 Level of Service Type of Service Level Of Care Type of Care IP - INPATIENT/HLOC P - MENTAL HEALTH I - INPATIENT CIP - INPATIENT HOSPITAL - INPATIENT HOSPITAL Provider Name & Address Provider ID Provider Alternate ID SAIRA SANTO [id number] [address] [place] [address] [phone]
== END 2017-07-13 18:25 | DRG 754 ==
LOC: ERH 18:01 → CP SOUTH 07-02 08:40 → ERHI 07-02 08:40 → ENTRNSPT 07-02 10:43 → EDTRNSPTSTS 07-02 10:50 → EDTRNSPT 07-02 10:50 → CP SOUTH 07-02 10:58 → CMPTRNSPT 07-02 11:06 → CP SOUTH 07-04 10:02
PROVIDERS: Pediatrics
DX: F32.9 Major depressive disorder, single episode, unspecified (principal); I10 Essential (primary) hypertension; E11.9 Type 2 diabetes mellitus without complications; F14.90 Cocaine use, unspecified, uncomplicated; Z86.73 Personal history of transient ischemic attack (TIA), and cerebral infarction without residual deficits
CPT/HCPCS: 36415; 80307; 82436; 96360; 96361; G0480; J3490